=== PATIENT | male | born 1965 | race Caucasian/White ===

== ENCOUNTER 2016-12-24 22:09 | Inpatient (IN) | payer MEDICAID ==
[~2016-12-24] VITALS: Ht 165.1 cm; Wt 79.4 kg
[2016-12-24 22:30] VITALS: BP 128/68
[2016-12-24] MEDS ORDERED: Famotidine 20 MG/ 2ML VIAL IVP ONE (22:45)
[2016-12-24 23:49] LABS: ALANINE AMINOTRANSFERASE 42 U/L (3-41); ANION GAP 19 (5-15); ASPARTATE AMINO TRANSFERASE 20 U/L (5-40); CALCIUM 9.5 mg/dL (8.6-10.2); CARBON DIOXIDE 24 mEQ/L (20-30); CHLORIDE 94 mEQ/L (98-107); CREATININE 0.6 mg/dL (0.7-1.2); GLOMERULAR FILTRATION RATE > 60 mL/min (>60); HEMOLYSIS 8; LIPASE 46 U/L (< 60); POTASSIUM 3.3 mEQ/L (3.4-4.9); SODIUM 137 mEQ/L (135-145); TOTAL PROTEIN 7.8 g/dL (6.6-8.7)
[2016-12-24 23:56] LABS: BASOPHILS % (AUTO) 0.9 % (0.0-2.0); EOSINOPHILS % (AUTO) 1.9 % (0.0-3.0); LYMPHOCYTES % (AUTO) 25.9 % (20.0-45.0); MEAN CORPUSCULAR HEMOGLOBIN 30.1 PG (27.0-31.0); MEAN CORPUSCULAR HGB CONC 34.1 G/DL (32.0-36.0); MEAN CORPUSCULAR VOLUME 88 FL (80-99); MEAN PLATELET VOLUME 5.9 FL (6.5-10.1); MONOCYTES % (AUTO) 8.6 % (1.0-10.0); NEUTROPHILS % (AUTO) 62.7 % (45.0-75.0); PLATELET COUNT 289 K/UL (150-450); RED BLOOD COUNT 5.19 M/UL (4.70-6.10); RED CELL DISTRIBUTION WIDTH 11.9 % (11.6-14.8); WHITE BLOOD COUNT 10.8 K/UL (4.8-10.8)
[2016-12-25] VITALS (7 sets, daily range): BP systolic 116–126; BP diastolic 65–80
[2016-12-25] MEDS ORDERED: Phytonadione 10 MG in D5W 55 ML IVPB ONE ×2
[2016-12-25] MEDS ORDERED: Morphine Sulfate 2mg/ml Inj IVP PRN
[2016-12-25] MEDS ORDERED: Miralax 17gm pkt ORAL PRN
[2016-12-25] MEDS ORDERED: Nitroglycerin Subl 0.4mg tab (Bottle Of 25) SL PRN
[2016-12-25] MEDS ORDERED: Mylanta II UD 30ml ORAL PRN
[2016-12-25 00:03] LABS: INR 1.1 (0.9-1.1); PROTHROMBIN TIME 11.3 SEC (9.30-11.50)
[2016-12-25] MEDS: D5NS 1,000 ML IV SCH ×3 (00:14→20:05)
[2016-12-25] MEDS ORDERED: AMLODIPINE BESY10 MG ORAL (00:57)
[2016-12-25] MEDS ORDERED: PANTOPRAZOLE SO40 MG ORAL (00:57)
[2016-12-25] MEDS ORDERED: LEVOTHYROXINE25 MCG ORAL (00:57)
[2016-12-25] MEDS ORDERED: SERTRALINE HCL50 MG ORAL (00:57)
[2016-12-25] MEDS ORDERED: XARELTO10 MG ORAL (00:57)
[2016-12-25] MEDS ORDERED: METFORMIN HCL1000 M1 ORAL (00:57)
[2016-12-25] MEDS ORDERED: ASPIRIN81 MG ORAL (00:57)
[2016-12-25] MEDS ORDERED: LANTUS SOL100 UNIT/1 SUBQ (00:57)
[2016-12-25] MEDS ORDERED: DOCUSATE SODIU100 MG ORAL (00:57)
[2016-12-25] MEDS ORDERED: NEURONTIN400 MG ORAL (00:57)
[2016-12-25] MEDS ORDERED: LORAZEPAM0.5 MG ORAL (00:57)
[2016-12-25] MEDS ORDERED: GLIPIZIDE5 MG ORAL (00:57)
[2016-12-25] MEDS ORDERED: ACETAMINOPHEN325 M1 ORAL (00:57)
[2016-12-25] MEDS ORDERED: ATORVASTATIN CA20 MG ORAL (00:57)
[2016-12-25] MEDS ORDERED: RESTORIL15 MG ORAL (00:57)
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
[2016-12-25] MEDS ORDERED: Phytonadione 10 mg/mL 1ml amp ONE (02:50)
[2016-12-25 03:20] LABS: KETONES,URINE NEGATIVE (NEGATIVE); LEUKOCYTE ESTERASE ,URINE NEGATIVE (NEGATIVE); NITRITE,URINE NEGATIVE (NEGATIVE); PH,URINE 6 (4.5-8.0); PROTEIN,URINE NEGATIVE (NEGATIVE); UROBILINOGEN,URINE 1 MG/DL (0.0-1.0)
[2016-12-25 03:31] LABS: APPEARANCE,URINE CLEAR
[2016-12-25 07:07] LABS: BASOPHILS % (AUTO) 1.2 % (0.0-2.0); LYMPHOCYTES % (AUTO) 27.9 % (20.0-45.0); MEAN CORPUSCULAR HEMOGLOBIN 29.5 PG (27.0-31.0); MEAN CORPUSCULAR VOLUME 89 FL (80-99); MONOCYTES % (AUTO) 10.5 % (1.0-10.0); NEUTROPHILS % (AUTO) 57.4 % (45.0-75.0); PLATELET COUNT 243 K/UL (150-450); RED BLOOD COUNT 4.82 M/UL (4.70-6.10); RED CELL DISTRIBUTION WIDTH 11.7 % (11.6-14.8); WHITE BLOOD COUNT 8.3 K/UL (4.8-10.8)
[2016-12-25 07:23] LABS: ALANINE AMINOTRANSFERASE 40 U/L (3-41); AMYLASE 32 U/L (10-110); ANION GAP 16 (5-15); ASPARTATE AMINO TRANSFERASE 24 U/L (5-40); CALCIUM 8.9 mg/dL (8.6-10.2); CARBON DIOXIDE 23 mEQ/L (20-30); CHLORIDE 97 mEQ/L (98-107); CREATININE 0.5 mg/dL (0.7-1.2); GLOMERULAR FILTRATION RATE > 60 mL/min (>60); HEMOLYSIS 64; LIPASE 50 U/L (< 60); POTASSIUM 3.8 mEQ/L (3.4-4.9); SODIUM 136 mEQ/L (135-145); TOTAL PROTEIN 7.2 g/dL (6.6-8.7)
[2016-12-25 08:02] LABS: PROTHROMBIN TIME 10.2 SEC (9.30-11.50)
--- NOTE | 2016-12-25 13:46 | GI Initial Consult Note ---
History of Present Illness General Date patient seen: Dec 25, 2016 Time patient seen: 10:00 Reason for Hospitalization: Abdominal Pain Referring physician: RAF JARRETT Reason for Consultation: HEMATEMESIS Present Illness HPI Is a 51-year-old male with history hypertension and diabetes. He lives in a half[place]way. He presents with chief complaint of epigastric pain with 2 episode of hematemesis earlier this morning. He has no pain now. No vomiting now. No diarrhea or melena. Pain was 8/10. Crampy in nature. Denies any history of alcohol or drug use. GI Consult. HPI as noted above. GI consulted for hematemesis. Pt seen on floor, fatigue A&Ox4 NAD with no active s/sx of N/V/D. The patient presents today with stable H&H and elevated alkaline phosphatase. No known history of endoscopic procedures. Home Meds Reported Medications Sertraline Hcl* (ZOLOFT*) 50 Mg Tablet, 50 MG ORAL DAILY, TAB 12/25/16 Rivaroxaban (XARELTO*) 10 Mg Tablet, 20 MG ORAL DAILY, #30 TAB 0 Refills 12/25/16 Temazepam* (RESTORIL*) 15 Mg Capsule, 15 MG ORAL PRN Y for Insomnia, CAP 12/25/16 Pantoprazole* (PANTOPRAZOLE*) 40 Mg Tablet.dr, 40 MG ORAL DAILY, TAB 12/25/16 Gabapentin* (NEURONTIN*) 400 Mg Capsule, 400 MG ORAL THREE TIMES A DAY, #15 CAP 0 Refills 12/25/16 Metformin Hcl* (METFORMIN HCL*) 1,000 Mg Tablet, 1000 MG ORAL BID, TAB 12/25/16 Lorazepam* (LORAZEPAM*) 0.5 Mg Tablet, 0.5 MG ORAL PRN, TAB 12/25/16 Levothyroxine Sodium* (LEVOTHYROXINE SODIUM*) 25 Mcg Tablet, 25 MCG ORAL DAILY, TAB Take in the morning on an empty stomach, at least 30 minutes before food. 12/25/16 Insulin Glargine (LANTUS) 100 Unit/1 Ml Insuln.pen, 0 SUBQ BEDTIME, #1 EA 0 Refills 12/25/16 Glipizide* (GLIPIZIDE*) 5 Mg Tablet, 5 MG ORAL BIDAC, TAB 12/25/16 Docusate Sodium* (DOCUSATE SODIUM*) 100 Mg Capsule, 100 MG ORAL DAILY for Constipation, CAP 12/25/16 Atorvastatin Calcium* (ATORVASTATIN CALCIUM*) 20 Mg Tablet, 20 MG ORAL BEDTIME, TAB 12/25/16 Aspirin* (ASPIRIN*) 81 Mg Tab.chew, 81 MG ORAL DAILY, TAB 12/25/16 Amlodipine Besylate* (AMLODIPINE BESYLATE*) 10 Mg Tablet, 10 MG ORAL DAILY Y for For High Blood Pressure, TAB 12/25/16 Acetaminophen* (ACETAMINOPHEN 325MG TABLET*) 325 Mg Tablet, 650 MG ORAL Q4H Y for For Pain, TAB 12/25/16 Med list reviewed/reconciled: Yes Allergies: Coded Allergies: AMOXICILLIN (Verified Allergy, Unknown, 12/24/16) Patient History History Provided By: Patient, Medical Record [facility] Narrative Past Medical History: No History, Except For Hx Cardiac Problems: Yes - chf Hx Hypertension: Yes Hx Diabetes: Yes - DM2 Social History Narrative social ETOH social tobacco use Review of Systems All Other Systems: negative except mentioned in HPI Physical Exam Vital Signs Date Time Temp Pulse Resp B/P Pulse Ox O2 Delivery O2 Flow Rate FiO2 12/24/16 22:16 98.4 100 20 128/67 90 Room Air Sp02 EP Interpretation: reviewed Labs Laboratory Tests Test 12/24/16 23:15 12/25/16 02:00 12/25/16 04:55 White Blood Count 10.8 K/UL (4.8-10.8) 8.3 K/UL (4.8-10.8) Red Blood Count 5.19 M/UL (4.70-6.10) 4.82 M/UL (4.70-6.10) Hemoglobin 15.6 G/DL (14.2-18.0) 14.2 G/DL (14.2-18.0) Hematocrit 45.7 % (42.0-52.0) 43.0 % (42.0-52.0) Mean Corpuscular Volume 88 FL (80-99) 89 FL (80-99) Mean Corpuscular Hemoglobin 30.1 PG (27.0-31.0) 29.5 PG (27.0-31.0) Mean Corpuscular Hemoglobin Concent 34.1 G/DL (32.0-36.0) 33.0 G/DL (32.0-36.0) Red Cell Distribution Width 11.9 % (11.6-14.8) 11.7 % (11.6-14.8) Platelet Count 289 K/UL (150-450) 243 K/UL (150-450) Mean Platelet Volume 5.9 FL (6.5-10.1) L 6.0 FL (6.5-10.1) L Neutrophils (%) (Auto) 62.7 % (45.0-75.0) 57.4 % (45.0-75.0) Lymphocytes (%) (Auto) 25.9 % (20.0-45.0) 27.9 % (20.0-45.0) Monocytes (%) (Auto) 8.6 % (1.0-10.0) 10.5 % (1.0-10.0) H Eosinophils (%) (Auto) 1.9 % (0.0-3.0) 3.0 % (0.0-3.0) Basophils (%) (Auto) 0.9 % (0.0-2.0) 1.2 % (0.0-2.0) Prothrombin Time 11.3 SEC (9.30-11.50) 10.2 SEC (9.30-11.50) Prothromb Time International Ratio 1.1 (0.9-1.1) 1.0 (0.9-1.1) Activated Partial Thromboplast Time 34 SEC (23-33) H 28 SEC (23-33) Sodium Level 137 mEQ/L (135-145) 136 mEQ/L (135-145) Potassium Level 3.3 mEQ/L (3.4-4.9) L 3.8 mEQ/L (3.4-4.9) Chloride Level 94 mEQ/L (98-107) L 97 mEQ/L (98-107) L Carbon Dioxide Level 24 mEQ/L (20-30) 23 mEQ/L (20-30) Anion Gap 19 (5-15) H 16 (5-15) H Blood Urea Nitrogen 12 mg/dL (7-23) 10 mg/dL (7-23) Creatinine 0.6 mg/dL (0.7-1.2) L 0.5 mg/dL (0.7-1.2) L Estimat Glomerular Filtration Rate > 60 mL/min (>60) > 60 mL/min (>60) Glucose Level 160 mg/dL (74-106) H 171 mg/dL (74-106) H Calcium Level 9.5 mg/dL (8.6-10.2) 8.9 mg/dL (8.6-10.2) Total Bilirubin 0.4 mg/dL (0.0-1.2) 0.4 mg/dL (0.0-1.2) Aspartate Amino Transf (AST/SGOT) 20 U/L (5-40) 24 U/L (5-40) Alanine Aminotransferase (ALT/SGPT) 42 U/L (3-41) H 40 U/L (3-41) Alkaline Phosphatase 147 U/L (40-129) H 135 U/L (40-129) H Total Protein 7.8 g/dL (6.6-8.7) 7.2 g/dL (6.6-8.7) Albumin 3.9 g/dL (3.5-5.2) 3.6 g/dL (3.5-5.2) Globulin 3.9 g/dL 3.6 g/dL Albumin/Globulin Ratio 1.0 (1.0-2.7) 1.0 (1.0-2.7) Lipase 46 U/L (< 60) 50 U/L (< 60) Urine Color Yellow Urine Appearance Clear Urine pH 6 (4.5-8.0) Urine Specific [place] 1.020 (1.005-1.035) Urine Protein Negative (NEGATIVE) Urine Glucose (UA) 1+ (NEGATIVE) H Urine Ketones Negative (NEGATIVE) Urine Occult Blood Negative (NEGATIVE) Urine Nitrite Negative (NEGATIVE) Urine Bilirubin Negative (NEGATIVE) Urine Urobilinogen 1 MG/DL (0.0-1.0) H Urine Leukocyte Esterase Negative (NEGATIVE) Amylase Level 32 U/L (10-110) General Appearance: well appearing, no apparent distress, alert Head: normocephalic EENT: normal ENT inspection Neck: supple Respiratory: normal breath sounds, no rhonchi, no respiratory distress Cardiovascular: normal rate Gastrointestinal: normal inspection, non tender, soft Rectal: deferred Musculoskeletal: normal inspection, back normal Neurologic: normal inspection, alert, oriented x3, responsive Psychiatric: normal inspection, judgement/insight normal Skin: normal inspection, normal color, no rash Lymphatic: normal inspection, no adenopathy Current Medications Current Medications Medications (Trade) Dose Ordered Sig/Elis Route PRN Reason Start Time Stop Time Status Last Admin Dose Admin Acetaminophen (Tylenol) 650 mg Q4H PRN ORAL fever 12/25/16 00:00 01/24/17 00:00 Al Hydroxide/Mg Hydroxide (Mylanta II) 30 ml Q6H PRN ORAL dyspepsia 12/25/16 00:00 01/24/17 00:00 Dextrose STAT PRN IV Hypoglycemia 12/25/16 00:00 01/24/17 00:00 Dextrose/Sodium Chloride (D5ns) 1,000 ml @ 100 mls/hr Q10H IV 12/24/16 23:51 01/23/17 23:50 12/25/16 09:58 Diphenhydramine HCl (Benadryl) 25 mg Q6H PRN ORAL Itching/Pruritis 12/25/16 00:00 01/24/17 00:00 Morphine Sulfate (Morphine Sulfate) 2 mg Q4H PRN IVP severe Pain (Pain Scale 7-10) 12/25/16 00:00 01/01/17 00:00 Nitroglycerin (Ntg) 0.4 mg Q5M X 3 DOSES PRN SL Prn Chest Pain 12/25/16 00:00 01/24/17 00:00 Ondansetron HCl (Zofran) 4 mg Q6H PRN IVP Nausea & Vomiting 12/25/16 00:00 01/24/17 00:00 Polyethylene Glycol (Miralax) 17 gm HSPRN PRN ORAL Constipation 12/25/16 00:00 01/24/17 00:00 Temazepam (Restoril) 15 mg HSPRN PRN ORAL Insomnia 12/25/16 00:00 01/01/17 00:00 GI: Plan Problems: (1) Hematemesis Plan stable H&H lipase negative EGD scheduled for tomorrow to evaluate hematemesis. - CLD, NPO @ NE. ppi monitor H&H, transfuse prn fu labs Discussed with Dr. Mcgraw. Thank you for referring this patient, we will follow. Ginny Butterfield N.P. Dec 25, 2016 13:46
--- NOTE | 2016-12-25 14:06 | Diagnostic Imaging Report ---
Indication: Chest pain Technique: One view of the chest Comparison: none Findings: The right hemidiaphragm is elevated. Lungs and pleural spaces are clear otherwise. A surgical clip is seen in the right axilla. The heart size is normal Impression: Elevated right hemidiaphragm. No definite acute process
--- NOTE | 2016-12-25 16:33 | Consultation ---
History of Present Illness General Date patient seen: Dec 25, 2016 Chief Complaint: Abdominal Pain Referring physician: RAF JARRETT Reason for Consultation: HEMATEMESIS Present Illness HPI 51-year-old male with history hypertension and diabetes, [place], [place] [facility] resident presents with chief complaint of epigastric pain with 2 episode of hematemesis earlier this morning. He has no pain now. No vomiting now. No diarrhea or melena. Pain was 8/10. Crampy in nature. Denies any history of alcohol or drug use. Allergies: Coded Allergies: AMOXICILLIN (Verified Allergy, Unknown, 12/24/16) Medication History Scheduled Aspirin* (Aspirin*), 81 MG ORAL DAILY, (Reported) Atorvastatin Calcium* (Atorvastatin Calcium*), 20 MG ORAL BEDTIME, (Reported) Docusate Sodium* (Docusate Sodium*), 100 MG ORAL DAILY, (Reported) Gabapentin* (Neurontin*), 400 MG ORAL THREE TIMES A DAY, (Reported) Glipizide* (Glipizide*), 5 MG ORAL BIDAC, (Reported) Insulin Glargine (Lantus), 0 SUBQ BEDTIME, (Reported) Levothyroxine Sodium* (Levothyroxine Sodium*), 25 MCG ORAL DAILY, (Reported) Lorazepam* (Lorazepam*), 0.5 MG ORAL PRN, (Reported) Metformin Hcl* (Metformin Hcl*), 1,000 MG ORAL BID, (Reported) Pantoprazole* (Pantoprazole*), 40 MG ORAL DAILY, (Reported) Rivaroxaban (Xarelto*), 20 MG ORAL DAILY, (Reported) Sertraline Hcl* (Zoloft*), 50 MG ORAL DAILY, (Reported) Scheduled PRN Acetaminophen* (Acetaminophen 325MG Tablet*), 650 MG ORAL Q4H PRN for For Pain, (Reported) Amlodipine Besylate* (Amlodipine Besylate*), 10 MG ORAL DAILY PRN for For High Blood Pressure, (Reported) Temazepam* (Restoril*), 15 MG ORAL PRN PRN for Insomnia, (Reported) Patient History Healthcare decision maker Resuscitation status Full Code Advanced Directive on File Past Medical/Surgical History Past Medical/Surgical History: (1) HTN (hypertension) (2) Psychosis Review of Systems All Other Systems: negative except mentioned in HPI Physical Exam General Appearance: WD/WN, no apparent distress Lines, tubes and drains: peripheral, central line HEENT: normocephalic, atraumatic Neck: non-tender, normal alignment Respiratory/Chest: chest wall non-tender, lungs clear Cardiovascular/Chest: normal peripheral pulses, normal rate Abdomen: normal bowel sounds Genitourinary/Rectal: normal genital exam, normal rectal exam Extremities: normal range of motion, other - 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 Skin Exam: normal pigmentation Last 24 Hour Vital Signs Date Time Temp Pulse Resp B/P Pulse Ox O2 Delivery O2 Flow Rate FiO2 12/25/16 12:00 96.8 82 20 116/65 95 Room Air 12/25/16 08:00 97.3 89 20 120/72 94 Room Air 12/25/16 01:51 97.9 92 18 125/80 95 Room Air 12/25/16 01:40 98.2 92 21 126/72 99 Room Air 12/25/16 01:40 98.2 92 21 126/72 99 Room Air 12/25/16 00:10 81 17 122/65 100 Room Air 12/24/16 22:30 98.4 99 20 128/68 97 Room Air 12/24/16 22:16 98.4 100 20 128/67 90 Room Air Intake and Output 12/24/16 12/25/16 19:00 07:00 Intake Total 1600 ml Output Total 450 ml Balance 1150 ml Intake IV Total 1600 ml Output Urine Total 450 ml Laboratory Tests Test 12/24/16 23:15 12/25/16 02:00 12/25/16 04:55 White Blood Count 10.8 K/UL (4.8-10.8) 8.3 K/UL (4.8-10.8) Red Blood Count 5.19 M/UL (4.70-6.10) 4.82 M/UL (4.70-6.10) Hemoglobin 15.6 G/DL (14.2-18.0) 14.2 G/DL (14.2-18.0) Hematocrit 45.7 % (42.0-52.0) 43.0 % (42.0-52.0) Mean Corpuscular Volume 88 FL (80-99) 89 FL (80-99) Mean Corpuscular Hemoglobin 30.1 PG (27.0-31.0) 29.5 PG (27.0-31.0) Mean Corpuscular Hemoglobin Concent 34.1 G/DL (32.0-36.0) 33.0 G/DL (32.0-36.0) Red Cell Distribution Width 11.9 % (11.6-14.8) 11.7 % (11.6-14.8) Platelet Count 289 K/UL (150-450) 243 K/UL (150-450) Mean Platelet Volume 5.9 FL (6.5-10.1) L 6.0 FL (6.5-10.1) L Neutrophils (%) (Auto) 62.7 % (45.0-75.0) 57.4 % (45.0-75.0) Lymphocytes (%) (Auto) 25.9 % (20.0-45.0) 27.9 % (20.0-45.0) Monocytes (%) (Auto) 8.6 % (1.0-10.0) 10.5 % (1.0-10.0) H Eosinophils (%) (Auto) 1.9 % (0.0-3.0) 3.0 % (0.0-3.0) Basophils (%) (Auto) 0.9 % (0.0-2.0) 1.2 % (0.0-2.0) Prothrombin Time 11.3 SEC (9.30-11.50) 10.2 SEC (9.30-11.50) Prothromb Time International Ratio 1.1 (0.9-1.1) 1.0 (0.9-1.1) Activated Partial Thromboplast Time 34 SEC (23-33) H 28 SEC (23-33) Sodium Level 137 mEQ/L (135-145) 136 mEQ/L (135-145) Potassium Level 3.3 mEQ/L (3.4-4.9) L 3.8 mEQ/L (3.4-4.9) Chloride Level 94 mEQ/L (98-107) L 97 mEQ/L (98-107) L Carbon Dioxide Level 24 mEQ/L (20-30) 23 mEQ/L (20-30) Anion Gap 19 (5-15) H 16 (5-15) H Blood Urea Nitrogen 12 mg/dL (7-23) 10 mg/dL (7-23) Creatinine 0.6 mg/dL (0.7-1.2) L 0.5 mg/dL (0.7-1.2) L Estimat Glomerular Filtration Rate > 60 mL/min (>60) > 60 mL/min (>60) Glucose Level 160 mg/dL (74-106) H 171 mg/dL (74-106) H Calcium Level 9.5 mg/dL (8.6-10.2) 8.9 mg/dL (8.6-10.2) Total Bilirubin 0.4 mg/dL (0.0-1.2) 0.4 mg/dL (0.0-1.2) Aspartate Amino Transf (AST/SGOT) 20 U/L (5-40) 24 U/L (5-40) Alanine Aminotransferase (ALT/SGPT) 42 U/L (3-41) H 40 U/L (3-41) Alkaline Phosphatase 147 U/L (40-129) H 135 U/L (40-129) H Total Protein 7.8 g/dL (6.6-8.7) 7.2 g/dL (6.6-8.7) Albumin 3.9 g/dL (3.5-5.2) 3.6 g/dL (3.5-5.2) Globulin 3.9 g/dL 3.6 g/dL Albumin/Globulin Ratio 1.0 (1.0-2.7) 1.0 (1.0-2.7) Lipase 46 U/L (< 60) 50 U/L (< 60) Urine Color Yellow Urine Appearance Clear Urine pH 6 (4.5-8.0) Urine Specific [place] 1.020 (1.005-1.035) Urine Protein Negative (NEGATIVE) Urine Glucose (UA) 1+ (NEGATIVE) H Urine Ketones Negative (NEGATIVE) Urine Occult Blood Negative (NEGATIVE) Urine Nitrite Negative (NEGATIVE) Urine Bilirubin Negative (NEGATIVE) Urine Urobilinogen 1 MG/DL (0.0-1.0) H Urine Leukocyte Esterase Negative (NEGATIVE) Amylase Level 32 U/L (10-110) Height (Feet): 5 Height (Inches): 10.00 Weight (Pounds): 175 Medications Current Medications Medications (Trade) Dose Ordered Sig/Elis Route PRN Reason Start Time Stop Time Status Last Admin Dose Admin Acetaminophen (Tylenol) 650 mg Q4H PRN ORAL fever 12/25/16 00:00 01/24/17 00:00 Al Hydroxide/Mg Hydroxide (Mylanta II) 30 ml Q6H PRN ORAL dyspepsia 12/25/16 00:00 01/24/17 00:00 Dextrose (Dextrose 50%) STAT PRN IV Hypoglycemia 12/25/16 16:00 01/24/17 15:59 UNV Dextrose STAT PRN IV Hypoglycemia 12/25/16 00:00 01/24/17 00:00 Dextrose/Sodium Chloride (D5ns) 1,000 ml @ 100 mls/hr Q10H IV 12/24/16 23:51 01/23/17 23:50 12/25/16 09:58 Diphenhydramine HCl (Benadryl) 25 mg Q6H PRN ORAL Itching/Pruritis 12/25/16 00:00 01/24/17 00:00 Famotidine (Pepcid I.v.) 20 mg Q12HR IVP 12/25/16 21:00 01/24/17 20:59 UNV Insulin Aspart (NovoLOG) BEFORE MEALS AND HS SUBQ 12/25/16 16:30 01/24/17 16:29 UNV Morphine Sulfate (Morphine Sulfate) 2 mg Q4H PRN IVP severe Pain (Pain Scale 7-10) 12/25/16 00:00 01/01/17 00:00 Nitroglycerin (Ntg) 0.4 mg Q5M X 3 DOSES PRN SL Prn Chest Pain 12/25/16 00:00 01/24/17 00:00 Ondansetron HCl (Zofran) 4 mg Q6H PRN IVP Nausea & Vomiting 12/25/16 00:00 01/24/17 00:00 Polyethylene Glycol (Miralax) 17 gm HSPRN PRN ORAL Constipation 12/25/16 00:00 01/24/17 00:00 Temazepam (Restoril) 15 mg HSPRN PRN ORAL Insomnia 12/25/16 00:00 01/01/17 00:00 Assessment/Plan Problem List: (1) Hematemesis ICD Codes: K92.0 - Hematemesis SNOMED: 9644350 Qualifiers: Qualified Codes: K92.0 - Hematemesis (2) Psychosis ICD Codes: F29 - Unspecified psychosis not due to a substance or known physiological condition SNOMED: 98767903 (3) HTN (hypertension) ICD Codes: I10 - Essential (primary) hypertension SNOMED: 56250229 Assessment/Plan npo Iv fluids check h/h prbc prn check and correct any coagulopathy monitor BP GI evaluation dvt prophylaxis. ANTONIA RAE Dec 25, 2016 16:33
--- NOTE | 2016-12-25 16:45 | History and Physical Report ---
DATE OF ADMISSION: 12/25/2016 TIME SEEN: 11 a.m. CONSULTANTS: 1. Tye Hughes M.D. 2. Kirill Mcgraw M.D. CHIEF COMPLAINT: Hematemesis. HISTORY OF PRESENT ILLNESS: The patient is a 51-year-old male from [facility] presented with bright red hematemesis x1, was slightly weak, transferred to [facility], diagnosed with gastrointestinal bleed, hematemesis admitted for further treatment, currently calm, sitting in bed, no complaints otherwise other than . REVIEW OF SYSTEMS: No chest pain. No shortness of breath. Slight nausea. No vomiting or diarrhea. PAST MEDICAL HISTORY: Diabetes, congestive heart failure. PAST SURGICAL HISTORY: Right arm. MEDICATIONS: Tylenol, morphine sulfate, MiraLAX, Zofran, Restoril, Benadryl, Mylanta, and nitroglycerin. ALLERGIES: Denies. SOCIAL HISTORY: Positive smoking. No alcohol. No intravenous drug abuse. FAMILY HISTORY: Noncontributory. PHYSICAL EXAMINATION: GENERAL: Calm in bed, oriented x2, and in no acute distress. VITAL SIGNS: Temperature is 97 degrees, pulse 89, respirations 20, and blood pressure 120/72. CARDIOVASCULAR: No murmur. LUNGS: Distant and poor exchange. ABDOMEN: Positive bowel sounds. Nontender and nondistended. EXTREMITIES: No cyanosis, clubbing, or edema. NEUROLOGIC: The patient moves all four extremities but slightly weak. LABORATORY DATA: CBC is normal. BMP shows chloride 97. BUN and creatinine 10 over 0.5, glucose 171. Alkaline phosphatase 135. INR 1.0. PTT 28. Urinalysis shows 1+ glucose, otherwise normal. ASSESSMENT: 1. Hematemesis, possible gastrointestinal bleed. 2. Diabetes. 3. Hypertension. PLAN: 1. Resume previous medications. 2. Accu-Chek sliding scale. 3. Stool guaiac x3. 4. CBC and BMP in the morning. 5. Blood pressure control. 6. Blood sugar control. 7. Dietary followup. 8. OT/PT evaluation. 9. CBC and BMP in the morning. 10. Dr. Hughes and Dr. Mcgraw to consult. 11. We will continue to follow this patient. Jose Oneal D.O. DR: Paloma JOB#: [id number] CC:
[2016-12-25] MEDS: NovoLOG Insulin Flexpen SUBQ SCH ×2 (18:03→20:39)
[2016-12-25] MEDS: Famotidine 20 MG/ 2ML VIAL IVP SCH (20:37)
[2016-12-26] VITALS: BP 123/70
[2016-12-26] MEDS: D5NS 1,000 ML IV SCH ×2 (05:51→15:51)
[2016-12-26] MEDS: NovoLOG Insulin Flexpen SUBQ SCH ×4 (06:30→20:51)
[2016-12-26 08:06] LABS: BASOPHILS % (AUTO) 0.7 % (0.0-2.0); EOSINOPHILS % (AUTO) 2.2 % (0.0-3.0); MEAN CORPUSCULAR HEMOGLOBIN 29.4 PG (27.0-31.0); MEAN CORPUSCULAR HGB CONC 33.1 G/DL (32.0-36.0); MEAN CORPUSCULAR VOLUME 89 FL (80-99); MEAN PLATELET VOLUME 6.3 FL (6.5-10.1); MONOCYTES % (AUTO) 10.6 % (1.0-10.0); NEUTROPHILS % (AUTO) 66.5 % (45.0-75.0); PLATELET COUNT 283 K/UL (150-450); RED BLOOD COUNT 4.76 M/UL (4.70-6.10); RED CELL DISTRIBUTION WIDTH 11.8 % (11.6-14.8); WHITE BLOOD COUNT 8.2 K/UL (4.8-10.8)
[2016-12-26 08:15] VITALS: BP 113/60
[2016-12-26 08:18] LABS: PROTHROMBIN TIME 10.3 SEC (9.30-11.50)
[2016-12-26 08:25] LABS: ANION GAP 13 (5-15); CALCIUM 8.7 mg/dL (8.6-10.2); CARBON DIOXIDE 27 mEQ/L (20-30); CHLORIDE 99 mEQ/L (98-107); CREATININE 0.5 mg/dL (0.7-1.2); GLOMERULAR FILTRATION RATE > 60 mL/min (>60); HEMOLYSIS 1; POTASSIUM 3.4 mEQ/L (3.4-4.9); SODIUM 139 mEQ/L (135-145)
[2016-12-26] MEDS: Famotidine 20 MG/ 2ML VIAL IVP SCH ×2 (09:00→21:00)
[2016-12-26 11:54] VITALS: BP 137/75
[2016-12-26] MEDS ORDERED: Heparin 2000 units/Ns 1000ml INJ ONE (13:00)
[2016-12-26] MEDS ORDERED: Lidocaine 1% Plain 30 ml INJ ONE (13:00)
[2016-12-26] MEDS: Dyna-Hex 2% Top Sol 8oz TOPIC SCH (13:00)
--- NOTE | 2016-12-26 14:42 | General Progress Note ---
Assessment/Plan Problem List: (1) Hematemesis ICD Codes: K92.0 - Hematemesis SNOMED: 6348067 Qualifiers: Qualified Codes: K92.0 - Hematemesis (2) Psychosis ICD Codes: F29 - Unspecified psychosis not due to a substance or known physiological condition SNOMED: 06386299 (3) HTN (hypertension) ICD Codes: I10 - Essential (primary) hypertension SNOMED: 72136445 Status: stable, progressing, tolerating diet Assessment/Plan ot pt diet adv diet gi f/u cbc bmp am dc plan Subjective Constitutional: Reports: weakness Allergies: Coded Allergies: AMOXICILLIN (Verified Allergy, Unknown, 12/24/16) All Systems: reviewed and negative except above Subjective calm in bed Objective Last 24 Hour Vital Signs Date Time Temp Pulse Resp B/P Pulse Ox O2 Delivery O2 Flow Rate FiO2 12/26/16 11:54 98.2 85 21 137/75 94 Room Air 12/26/16 08:15 97.0 82 22 113/60 97 Room Air 12/26/16 00:00 98.1 95 17 123/70 93 Room Air 12/25/16 20:00 98.2 89 17 125/74 93 Room Air 12/25/16 16:00 97.7 92 20 123/67 94 Room Air Intake and Output 12/25/16 12/26/16 19:00 07:00 Intake Total 1700 ml 660 ml Output Total 350 ml Balance 1700 ml 310 ml Intake Oral 400 ml 360 ml IV Total 1300 ml 300 ml Output Urine Total 350 ml # Voids 7 4 Laboratory Tests 12/26/16 07:25: White Blood Count 8.2, Red Blood Count 4.76, Hemoglobin 14.0L, Hematocrit 42.3, Mean Corpuscular Volume 89, Mean Corpuscular Hemoglobin 29.4, Mean Corpuscular Hemoglobin Concent 33.1, Red Cell Distribution Width 11.8, Platelet Count 283, Mean Platelet Volume 6.3L, Neutrophils (%) (Auto) 66.5, Lymphocytes (%) (Auto) 20.0, Monocytes (%) (Auto) 10.6H, Eosinophils (%) (Auto) 2.2, Basophils (%) ( Auto) 0.7, Prothrombin Time 10.3, Prothromb Time International Ratio 1.0, Activated Partial Thromboplast Time 28, Sodium Level 139, Potassium Level 3.4, Chloride Level 99, Carbon Dioxide Level 27, Anion Gap 13, Blood Urea Nitrogen 7 , Creatinine 0.5L, Estimat Glomerular Filtration Rate > 60, Glucose Level 171H, Calcium Level 8.7 Height (Feet): 5 Height (Inches): 5.00 Weight (Pounds): 175 General Appearance: lethargic EENT: normal ENT inspection Neck: normal alignment Cardiovascular: normal peripheral pulses, normal rate, regular rhythm Respiratory/Chest: chest wall non-tender, lungs clear, normal breath sounds Abdomen: normal bowel sounds, non tender, soft Extremities: normal inspection Edema: no edema noted Arm (L), no edema noted Arm (R), no edema noted Leg (L), no edema noted Leg (R), no edema noted Pedal (L), no edema noted Pedal (R), no edema noted Generalized Neurologic: motor weakness Skin: normal pigmentation, warm/dry RAF JARRETT Dec 26, 2016 14:42
--- NOTE | 2016-12-26 14:57 | GI Progress Note ---
Assessment/Plan Problems: (1) Hematemesis ICD Codes: K92.0 - Hematemesis SNOMED: 6772185 Qualifiers: Qualified Codes: K92.0 - Hematemesis Status: stable Status Narrative Discussed with Dr. Mcgraw. Assessment/Plan stable H&H lipase negative EGD rescheduled for tomorrow due to no IV access - CLD, NPO @ [facility]. ppi monitor H&H, transfuse prn fu labs Subjective Gastrointestinal/Abdominal: Reports: no symptoms Objective Last 24 Hour Vital Signs Date Time Temp Pulse Resp B/P Pulse Ox O2 Delivery O2 Flow Rate FiO2 12/26/16 11:54 98.2 85 21 137/75 94 Room Air 12/26/16 08:15 97.0 82 22 113/60 97 Room Air 12/26/16 00:00 98.1 95 17 123/70 93 Room Air 12/25/16 20:00 98.2 89 17 125/74 93 Room Air 12/25/16 16:00 97.7 92 20 123/67 94 Room Air Intake and Output 12/25/16 12/26/16 19:00 07:00 Intake Total 1700 ml 660 ml Output Total 350 ml Balance 1700 ml 310 ml Intake Oral 400 ml 360 ml IV Total 1300 ml 300 ml Output Urine Total 350 ml # Voids 7 4 Laboratory Tests Test 12/26/16 07:25 White Blood Count 8.2 K/UL (4.8-10.8) Red Blood Count 4.76 M/UL (4.70-6.10) Hemoglobin 14.0 G/DL (14.2-18.0) L Hematocrit 42.3 % (42.0-52.0) Mean Corpuscular Volume 89 FL (80-99) Mean Corpuscular Hemoglobin 29.4 PG (27.0-31.0) Mean Corpuscular Hemoglobin Concent 33.1 G/DL (32.0-36.0) Red Cell Distribution Width 11.8 % (11.6-14.8) Platelet Count 283 K/UL (150-450) Mean Platelet Volume 6.3 FL (6.5-10.1) L Neutrophils (%) (Auto) 66.5 % (45.0-75.0) Lymphocytes (%) (Auto) 20.0 % (20.0-45.0) Monocytes (%) (Auto) 10.6 % (1.0-10.0) H Eosinophils (%) (Auto) 2.2 % (0.0-3.0) Basophils (%) (Auto) 0.7 % (0.0-2.0) Prothrombin Time 10.3 SEC (9.30-11.50) Prothromb Time International Ratio 1.0 (0.9-1.1) Activated Partial Thromboplast Time 28 SEC (23-33) Sodium Level 139 mEQ/L (135-145) Potassium Level 3.4 mEQ/L (3.4-4.9) Chloride Level 99 mEQ/L (98-107) Carbon Dioxide Level 27 mEQ/L (20-30) Anion Gap 13 (5-15) Blood Urea Nitrogen 7 mg/dL (7-23) Creatinine 0.5 mg/dL (0.7-1.2) L Estimat Glomerular Filtration Rate > 60 mL/min (>60) Glucose Level 171 mg/dL (74-106) H Calcium Level 8.7 mg/dL (8.6-10.2) Height (Feet): 5 Height (Inches): 5.00 Weight (Pounds): 175 General Appearance: no apparent distress, alert Cardiovascular: normal rate Respiratory/Chest: normal breath sounds, no respiratory distress Abdominal Exam: normal bowel sounds, non tender, soft Ginny Butterfield N.P. Dec 26, 2016 14:57
[2016-12-26 16:16] VITALS: BP 144/79
--- NOTE | 2016-12-26 18:59 | Pulmonology Progress Note ---
Assessment/Plan Problems: (1) Hematemesis (2) Psychosis (3) HTN (hypertension) Assessment/Plan EGD for tomorrow check h/h, prbc prn symptomatic treatment check labs in am Subjective ROS Limited/Unobtainable: No Constitutional: Reports: no symptoms HEENT: Repors: no symptoms Respiratory: Reports: no symptoms Allergies: Coded Allergies: AMOXICILLIN (Verified Allergy, Unknown, 12/24/16) Objective Last 24 Hour Vital Signs Date Time Temp Pulse Resp B/P Pulse Ox O2 Delivery O2 Flow Rate FiO2 12/26/16 16:16 97.6 93 23 144/79 95 Room Air 12/26/16 11:54 98.2 85 21 137/75 94 Room Air 12/26/16 08:15 97.0 82 22 113/60 97 Room Air 12/26/16 00:00 98.1 95 17 123/70 93 Room Air 12/25/16 20:00 98.2 89 17 125/74 93 Room Air Intake and Output 12/25/16 12/26/16 18:59 06:59 Intake Total 1600 ml 760 ml Output Total 350 ml Balance 1600 ml 410 ml Intake Oral 400 ml 360 ml IV Total 1200 ml 400 ml Output Urine Total 350 ml # Voids 7 4 General Appearance: cachetic HEENT: normocephalic, atraumatic Respiratory/Chest: chest wall non-tender, lungs clear Cardiovascular: normal peripheral pulses, normal rate Abdomen: normal bowel sounds, soft, non tender Genitourinary: normal external genitalia Extremities: no cyanosis, no clubbing Skin: no rash Laboratory Tests 12/26/16 07:25: White Blood Count 8.2, Red Blood Count 4.76, Hemoglobin 14.0L, Hematocrit 42.3, Mean Corpuscular Volume 89, Mean Corpuscular Hemoglobin 29.4, Mean Corpuscular Hemoglobin Concent 33.1, Red Cell Distribution Width 11.8, Platelet Count 283, Mean Platelet Volume 6.3L, Neutrophils (%) (Auto) 66.5, Lymphocytes (%) (Auto) 20.0, Monocytes (%) (Auto) 10.6H, Eosinophils (%) (Auto) 2.2, Basophils (%) ( Auto) 0.7, Prothrombin Time 10.3, Prothromb Time International Ratio 1.0, Activated Partial Thromboplast Time 28, Sodium Level 139, Potassium Level 3.4, Chloride Level 99, Carbon Dioxide Level 27, Anion Gap 13, Blood Urea Nitrogen 7 , Creatinine 0.5L, Estimat Glomerular Filtration Rate > 60, Glucose Level 171H, Calcium Level 8.7 Current Medications Medications (Trade) Dose Ordered Sig/Elis Route PRN Reason Start Time Stop Time Status Last Admin Dose Admin Acetaminophen (Tylenol) 650 mg Q4H PRN ORAL fever 12/25/16 00:00 01/24/17 00:00 Al Hydroxide/Mg Hydroxide (Mylanta II) 30 ml Q6H PRN ORAL dyspepsia 12/25/16 00:00 01/24/17 00:00 Chlorhexidine Gluconate (Nataly-Hex 2%) 1 applic DAILY TOPIC 12/26/16 13:00 01/25/17 12:59 Dextrose (Dextrose 50%) STAT PRN IV Hypoglycemia 12/25/16 16:00 01/24/17 15:59 Dextrose STAT PRN IV Hypoglycemia 12/25/16 00:00 01/24/17 00:00 Dextrose/Sodium Chloride (D5ns) 1,000 ml @ 100 mls/hr Q10H IV 12/24/16 23:51 01/23/17 23:50 12/25/16 20:05 Diphenhydramine HCl (Benadryl) 25 mg Q6H PRN ORAL Itching/Pruritis 12/25/16 00:00 01/24/17 00:00 Famotidine (Pepcid I.v.) 20 mg Q12HR IVP 12/25/16 21:00 01/24/17 20:59 12/25/16 20:37 Insulin Aspart (NovoLOG) BEFORE MEALS AND HS SUBQ 12/25/16 17:30 01/24/17 17:29 12/26/16 17:37 Morphine Sulfate (Morphine Sulfate) 2 mg Q4H PRN IVP severe Pain (Pain Scale 7-10) 12/25/16 00:00 01/01/17 00:00 Nitroglycerin (Ntg) 0.4 mg Q5M X 3 DOSES PRN SL Prn Chest Pain 12/25/16 00:00 01/24/17 00:00 Ondansetron HCl (Zofran) 4 mg Q6H PRN IVP Nausea & Vomiting 6/28/17 00:00 01/24/17 00:00 Polyethylene Glycol (Miralax) 17 gm HSPRN PRN ORAL Constipation 12/25/16 00:00 01/24/17 00:00 Temazepam (Restoril) 15 mg HSPRN PRN ORAL Insomnia 12/25/16 00:00 01/01/17 00:00 ANTONIA RAE Dec 26, 2016 18:59
[2016-12-26 20:00] VITALS: BP 124/79
[2016-12-26 23:46] VITALS: BP 131/74
[2016-12-27] VITALS (9 sets, daily range): BP systolic 109–146; BP diastolic 63–86
[2016-12-27] MEDS: D5NS 1,000 ML IV SCH ×4 (01:51→23:00)
[2016-12-27] MEDS: NovoLOG Insulin Flexpen SUBQ SCH ×4 (06:22→21:10)
--- NOTE | 2016-12-27 06:27 | Anethesia Preoperative Eval ---
Anesthesia Pre-op PMH/ROS General Date of Evaluation: Dec 27, 2016 Time of Evaluation: 06:24 Anesthesiologist: irma ASA Score: ASA 2 Mallampati Score Class I : Soft palate, uvula, fauces, pillars visible Class II: Soft palate, uvula, fauces visible Class III: Soft palate, base of uvula visible Class IV: Only hard plate visible Mallampati Classification: Class II Surgeon: adriana Diagnosis: hematemesis Surgical Procedure: egd Anesthesia History: none Family History: no anesthesia problems Allergies: Coded Allergies: AMOXICILLIN (Verified Allergy, Unknown, 12/24/16) Medications: see eMAR Past Medical History Cardiovascular: Reports: HTN Gastrointestinal/Genitourinary: Reports: GERD Neurologic/Psychiatric: Reports: depression/anxiety, other - unsteady gait Endocrine: Reports: DM, hypothyroidism Musculoskeletal/Integumentary: Reports: other - right above the elbow amputation Anesthesia Pre-op Phys. Exam Physician Exam Last Vital Signs Date Time Temp Pulse Resp B/P Pulse Ox O2 Delivery O2 Flow Rate FiO2 12/27/16 04:00 97.9 92 20 122/74 93 Room Air Constitutional: NAD Neurologic: other Cardiovascular: RRR Respiratory: CTA Gastrointestinal: S/NT/ND Airway Exam Mallampati Score: Class II MO: full Neck: supple TMD: 2fb ROM: full Teeth: missing Anesthesia Pre-op A/P Labs Labs Test 12/24/16 23:15 12/25/16 02:00 12/25/16 04:55 12/26/16 07:25 White Blood Count 10.8 K/UL (4.8-10.8) 8.3 K/UL (4.8-10.8) 8.2 K/UL (4.8-10.8) Red Blood Count 5.19 M/UL (4.70-6.10) 4.82 M/UL (4.70-6.10) 4.76 M/UL (4.70-6.10) Hemoglobin 15.6 G/DL (14.2-18.0) 14.2 G/DL (14.2-18.0) 14.0 G/DL (14.2-18.0) Hematocrit 45.7 % (42.0-52.0) 43.0 % (42.0-52.0) 42.3 % (42.0-52.0) Mean Corpuscular Volume 88 FL (80-99) 89 FL (80-99) 89 FL (80-99) Mean Corpuscular Hemoglobin 30.1 PG (27.0-31.0) 29.5 PG (27.0-31.0) 29.4 PG (27.0-31.0) Mean Corpuscular Hemoglobin Concent 34.1 G/DL (32.0-36.0) 33.0 G/DL (32.0-36.0) 33.1 G/DL (32.0-36.0) Red Cell Distribution Width 11.9 % (11.6-14.8) 11.7 % (11.6-14.8) 11.8 % (11.6-14.8) Platelet Count 289 K/UL (150-450) 243 K/UL (150-450) 283 K/UL (150-450) Mean Platelet Volume 5.9 FL (6.5-10.1) 6.0 FL (6.5-10.1) 6.3 FL (6.5-10.1) Neutrophils (%) (Auto) 62.7 % (45.0-75.0) 57.4 % (45.0-75.0) 66.5 % (45.0-75.0) Lymphocytes (%) (Auto) 25.9 % (20.0-45.0) 27.9 % (20.0-45.0) 20.0 % (20.0-45.0) Monocytes (%) (Auto) 8.6 % (1.0-10.0) 10.5 % (1.0-10.0) 10.6 % (1.0-10.0) Eosinophils (%) (Auto) 1.9 % (0.0-3.0) 3.0 % (0.0-3.0) 2.2 % (0.0-3.0) Basophils (%) (Auto) 0.9 % (0.0-2.0) 1.2 % (0.0-2.0) 0.7 % (0.0-2.0) Prothrombin Time 11.3 SEC (9.30-11.50) 10.2 SEC (9.30-11.50) 10.3 SEC (9.30-11.50) Prothromb Time International Ratio 1.1 (0.9-1.1) 1.0 (0.9-1.1) 1.0 (0.9-1.1) Activated Partial Thromboplast Time 34 SEC (23-33) 28 SEC (23-33) 28 SEC (23-33) Sodium Level 137 mEQ/L (135-145) 136 mEQ/L (135-145) 139 mEQ/L (135-145) Potassium Level 3.3 mEQ/L (3.4-4.9) 3.8 mEQ/L (3.4-4.9) 3.4 mEQ/L (3.4-4.9) Chloride Level 94 mEQ/L (98-107) 97 mEQ/L (98-107) 99 mEQ/L (98-107) Carbon Dioxide Level 24 mEQ/L (20-30) 23 mEQ/L (20-30) 27 mEQ/L (20-30) Anion Gap 19 (5-15) 16 (5-15) 13 (5-15) Blood Urea Nitrogen 12 mg/dL (7-23) 10 mg/dL (7-23) 7 mg/dL (7-23) Creatinine 0.6 mg/dL (0.7-1.2) 0.5 mg/dL (0.7-1.2) 0.5 mg/dL (0.7-1.2) Estimat Glomerular Filtration Rate > 60 mL/min (>60) > 60 mL/min (>60) > 60 mL/min (>60) Glucose Level 160 mg/dL (74-106) 171 mg/dL (74-106) 171 mg/dL (74-106) Calcium Level 9.5 mg/dL (8.6-10.2) 8.9 mg/dL (8.6-10.2) 8.7 mg/dL (8.6-10.2) Total Bilirubin 0.4 mg/dL (0.0-1.2) 0.4 mg/dL (0.0-1.2) Aspartate Amino Transf (AST/SGOT) 20 U/L (5-40) 24 U/L (5-40) Alanine Aminotransferase (ALT/SGPT) 42 U/L (3-41) 40 U/L (3-41) Alkaline Phosphatase 147 U/L (40-129) 135 U/L (40-129) Total Protein 7.8 g/dL (6.6-8.7) 7.2 g/dL (6.6-8.7) Albumin 3.9 g/dL (3.5-5.2) 3.6 g/dL (3.5-5.2) Globulin 3.9 g/dL 3.6 g/dL Albumin/Globulin Ratio 1.0 (1.0-2.7) 1.0 (1.0-2.7) Lipase 46 U/L (< 60) 50 U/L (< 60) Urine Color Yellow Urine Appearance Clear Urine pH 6 (4.5-8.0) Urine Specific We[place] 1.020 (1.005-1.035) Urine Protein Negative (NEGATIVE) Urine Glucose (UA) 1+ (NEGATIVE) Urine Ketones Negative (NEGATIVE) Urine Occult Blood Negative (NEGATIVE) Urine Nitrite Negative (NEGATIVE) Urine Bilirubin Negative (NEGATIVE) Urine Urobilinogen 1 MG/DL (0.0-1.0) Urine Leukocyte Esterase Negative (NEGATIVE) Amylase Level 32 U/L (10-110) Hematology Test 12/26/16 07:25 White Blood Count 8.2 K/UL (4.8-10.8) Red Blood Count 4.76 M/UL (4.70-6.10) Hemoglobin 14.0 G/DL (14.2-18.0) L Hematocrit 42.3 % (42.0-52.0) Mean Corpuscular Volume 89 FL (80-99) Mean Corpuscular Hemoglobin 29.4 PG (27.0-31.0) Mean Corpuscular Hemoglobin Concent 33.1 G/DL (32.0-36.0) Red Cell Distribution Width 11.8 % (11.6-14.8) Platelet Count 283 K/UL (150-450) Mean Platelet Volume 6.3 FL (6.5-10.1) L Neutrophils (%) (Auto) 66.5 % (45.0-75.0) Lymphocytes (%) (Auto) 20.0 % (20.0-45.0) Monocytes (%) (Auto) 10.6 % (1.0-10.0) H Eosinophils (%) (Auto) 2.2 % (0.0-3.0) Basophils (%) (Auto) 0.7 % (0.0-2.0) Coagulation Test 12/26/16 07:25 Prothrombin Time 10.3 SEC (9.30-11.50) Prothromb Time International Ratio 1.0 (0.9-1.1) Activated Partial Thromboplast Time 28 SEC (23-33) Chemistry Test 12/26/16 07:25 Sodium Level 139 mEQ/L (135-145) Potassium Level 3.4 mEQ/L (3.4-4.9) Chloride Level 99 mEQ/L (98-107) Carbon Dioxide Level 27 mEQ/L (20-30) Anion Gap 13 (5-15) Blood Urea Nitrogen 7 mg/dL (7-23) Creatinine 0.5 mg/dL (0.7-1.2) L Estimat Glomerular Filtration Rate > 60 mL/min (>60) Glucose Level 171 mg/dL (74-106) H Calcium Level 8.7 mg/dL (8.6-10.2) Risk Assessment & Plan Assessment: hematemesis Plan: egd Status Change Before Surgery: No Pre-Antibiotics Drug: DAVON Spears Dec 27, 2016 06:27
[2016-12-27 08:39] LABS: BASOPHILS % (AUTO) 0.8 % (0.0-2.0); EOSINOPHILS % (AUTO) 1.8 % (0.0-3.0); LYMPHOCYTES % (AUTO) 19.8 % (20.0-45.0); MEAN CORPUSCULAR HEMOGLOBIN 29.7 PG (27.0-31.0); MEAN CORPUSCULAR HGB CONC 33.5 G/DL (32.0-36.0); MEAN CORPUSCULAR VOLUME 89 FL (80-99); MONOCYTES % (AUTO) 10.1 % (1.0-10.0); NEUTROPHILS % (AUTO) 67.5 % (45.0-75.0); PLATELET COUNT 310 K/UL (150-450); RED CELL DISTRIBUTION WIDTH 11.7 % (11.6-14.8); WHITE BLOOD COUNT 8.6 K/UL (4.8-10.8)
[2016-12-27 08:53] LABS: ANION GAP 17 (5-15); CALCIUM 9.2 mg/dL (8.6-10.2); CARBON DIOXIDE 23 mEQ/L (20-30); CHLORIDE 98 mEQ/L (98-107); CREATININE 0.6 mg/dL (0.7-1.2); GLOMERULAR FILTRATION RATE > 60 mL/min (>60); HEMOLYSIS 7; POTASSIUM 3.4 mEQ/L (3.4-4.9); SODIUM 138 mEQ/L (135-145)
[2016-12-27] MEDS: Dyna-Hex 2% Top Sol 8oz TOPIC SCH (09:00)
--- NOTE | 2016-12-27 09:46 | Pulmonology Progress Note ---
Assessment/Plan Assessment/Plan ASSESSMENT hematemesis s/p EGD 12/27 gastritis distal esophagitis multiple shallow duodenal erosions psychosis hx of HTN DM PLAN OF CARE MS floor GI follows s/p EGD 12/27 with findings of 1. Distal esophagitis. 2. Gastritis. 3. Prominent fold at the angularis. 4. Multiple shallow duodenal erosions. per GI fup with biopsy results start diet as tolerated PPI IVF decrease rate if tolerated diet monitor HH, stable lipase WNL CXR negative Venous Duplex LE negative BS management with SS of insulin BP stable, no need for anti HTN meds dc planning case discussed and evaluated by supervising physician Subjective Allergies: Coded Allergies: AMOXICILLIN (Verified Allergy, Unknown, 12/24/16) Subjective no further episodes of hematemesis s/p EGD this am HH stable Objective Last 24 Hour Vital Signs Date Time Temp Pulse Resp B/P Pulse Ox O2 Delivery O2 Flow Rate FiO2 12/27/16 08:15 97.9 92 20 133/86 96 Room Air 12/27/16 04:00 97.9 92 20 122/74 93 Room Air 12/26/16 23:46 98.2 87 20 131/74 93 Room Air 12/26/16 20:00 98.2 93 20 124/79 95 Room Air 12/26/16 16:16 97.6 93 23 144/79 95 Room Air 12/26/16 11:54 98.2 85 21 137/75 94 Room Air Intake and Output 12/26/16 12/27/16 19:00 07:00 Intake Total 480 ml Output Total 300 ml Balance 480 ml -300 ml Intake Oral 480 ml Output Urine Total 300 ml # Voids 1 # Bowel Movements 1 General Appearance: WD/WN, no acute distress HEENT: normocephalic, atraumatic, anicteric, mucous membranes moist Respiratory/Chest: lungs clear, no respiratory distress Cardiovascular: normal rate, regular rhythm Abdomen: normal bowel sounds, soft, non tender Extremities: other - RUE stump clean Neurologic/Psychiatric: alert, responsive Musculoskeletal: normal muscle bulk Microbiology Date/Time Source Procedure Growth Status 12/25/16 00:34 Rectum VRE Culture - Final Enterococcus Faecalis - Vre Complete Laboratory Tests 12/27/16 08:10: White Blood Count 8.6, Red Blood Count 5.00, Hemoglobin 14.8, Hematocrit 44.3, Mean Corpuscular Volume 89, Mean Corpuscular Hemoglobin 29.7, Mean Corpuscular Hemoglobin Concent 33.5, Red Cell Distribution Width 11.7, Platelet Count 310, Mean Platelet Volume 6.0L, Neutrophils (%) (Auto) 67.5, Lymphocytes (%) (Auto) 19.8L, Monocytes (%) (Auto) 10.1H, Eosinophils (%) (Auto) 1.8, Basophils (%) ( Auto) 0.8, Sodium Level 138, Potassium Level 3.4, Chloride Level 98, Carbon Dioxide Level 23, Anion Gap 17H, Blood Urea Nitrogen 7, Creatinine 0.6L, Estimat Glomerular Filtration Rate > 60, Glucose Level 198H, Calcium Level 9.2 Current Medications Medications (Trade) Dose Ordered Sig/Elis Route PRN Reason Start Time Stop Time Status Last Admin Dose Admin Acetaminophen (Tylenol) 650 mg Q4H PRN ORAL fever 12/25/16 00:00 01/24/17 00:00 Al Hydroxide/Mg Hydroxide (Mylanta II) 30 ml Q6H PRN ORAL dyspepsia 12/25/16 00:00 01/24/17 00:00 Chlorhexidine Gluconate (Nataly-Hex 2%) 1 applic DAILY TOPIC 12/26/16 13:00 01/25/17 12:59 Dextrose (Dextrose 50%) STAT PRN IV Hypoglycemia 12/25/16 16:00 01/24/17 15:59 Dextrose STAT PRN IV Hypoglycemia 12/25/16 00:00 01/24/17 00:00 Dextrose/Sodium Chloride (D5ns) 1,000 ml @ 100 mls/hr Q10H IV 12/24/16 23:51 01/23/17 23:50 12/25/16 20:05 Diphenhydramine HCl (Benadryl) 25 mg Q6H PRN ORAL Itching/Pruritis 12/25/16 00:00 01/24/17 00:00 Famotidine (Pepcid I.v.) 20 mg Q12HR IVP 12/25/16 21:00 01/24/17 20:59 12/25/16 20:37 Insulin Aspart (NovoLOG) BEFORE MEALS AND HS SUBQ 12/25/16 17:30 01/24/17 17:29 12/26/16 20:51 Morphine Sulfate (Morphine Sulfate) 2 mg Q4H PRN IVP severe Pain (Pain Scale 7-10) 12/25/16 00:00 01/01/17 00:00 Nitroglycerin (Ntg) 0.4 mg Q5M X 3 DOSES PRN SL Prn Chest Pain 12/25/16 00:00 01/24/17 00:00 Ondansetron HCl (Zofran) 4 mg Q6H PRN IVP Nausea & Vomiting 12/25/16 00:00 01/24/17 00:00 Polyethylene Glycol (Miralax) 17 gm HSPRN PRN ORAL Constipation 12/25/16 00:00 01/24/17 00:00 Temazepam (Restoril) 15 mg HSPRN PRN ORAL Insomnia 12/25/16 00:00 01/01/17 00:00 Henrique MorseNorthwell HealthLaureen Kruger NP Dec 27, 2016 09:46
--- NOTE | 2016-12-27 10:39 | Diagnostic Imaging Report ---
Indications: Needs long-term IV access Technique: Ultrasound confirms patent compressible left basilic vein. Total sterile technique, including sterile probe cover and sterile gel, hat, mask,, sterile gown, large sterile drape, and preparation with 2% chlorhexidine utilized. Local anesthesia with 1% lidocaine. Under real-time ultrasound guidance, puncture basilic vein using 21-gauge needle, documented and archived, passage 0.018 guidewire under direct fluoroscopy, which was used to determine appropriate catheter length, exchange for 5 Divehi peel-away sheath. 5 Divehi Bard dual-lumen power PICC cut to 43 cm. It was inserted through the peel-away sheath. Peel-away sheath and guidewire removed. Catheter fixed to the skin. Both catheter ports aspirated and flushed. Patient tolerated procedure well, without immediate complication. Digital radiograph documents satisfactory catheter tip position, at the cavoatrial junction. Total fluoroscopy time 0.2 minutes. Total dose area product 8.1 dGycm2 Impression: Successful placement of left arm PICC under sonographic and fluoroscopic guidance, as described above.
--- NOTE | 2016-12-27 10:56 | Pre-Procedure Note/Attestation ---
Pre-Procedure Note/Attestation Complete Prior to Procedure Planned Procedure: not applicable Procedure Narrative: egd Indications for Procedure Pre-Operative Diagnosis: gib Attestation I attest that I discussed the nature of the procedure; its benefits; risks and complications; and alternatives (and the risks and benefits of such alternatives ), prior to the procedure, with the patient (or the patient's legal employee representative). I attest that, if there was a reasonable possibility of needing a blood transfusion, the patient (or the patient's legal employee representative) was given the [facility] standardized written summary, pursuant to the Nestor Brianda Blood Safety Act ([place] Health and Safety Code # 1645, as amended). I attest that I re-evaluated the patient just prior to the surgery and that there has been no change in the patient's H&P, except as documented below: HANNA BRANDON Dec 27, 2016 10:56
[2016-12-27] MEDS ORDERED: Lidocaine 1% MPF 10mg/ml 5ml ONE (11:15)
[2016-12-27] MEDS ORDERED: Propofol 10mg/ml 20ml IV ONE (11:15)
[2016-12-27] MEDS ORDERED: NS 550ML IV ONE (11:20)
--- NOTE | 2016-12-27 11:50 | Endoscopy Procedure Note ---
Endoscopy Procedure Note Indication for Procedure: gib Procedures Performed: EGD Operative Findings/Diagnosis: esophagitis Specimen: yes Pt Tolerated Procedure Well: Yes Estimated Blood Loss: none Anesthesiologist: israel chawla Anesthesia: MAC Implant(s) used?: No 50 yrs or older w/o bx or poly: Not Applicable 10yrs. F/U not recommended: Not Applicable HANNA BRANDON Dec 27, 2016 11:50
--- NOTE | 2016-12-27 12:45 | Diagnostic Imaging Report ---
APPROVED REPORT CPT Code: 34536 Present Symptoms Comments: Knee pain BILATERAL: Imaging reveals a patent deep venous system bilaterally. There is no evidence of thrombus within the femoral, popliteal or tibial segments. The greater saphenous veins are also within normal limits. Doppler indicates normal spontaneous flow within these segments.
[2016-12-27] MEDS: Famotidine 20 MG/ 2ML VIAL IVP SCH ×2 (12:56→21:08)
--- NOTE | 2016-12-27 13:08 | General Progress Note ---
Assessment/Plan Problem List: (1) Hematemesis ICD Codes: K92.0 - Hematemesis SNOMED: 2357257 Qualifiers: Qualified Codes: K92.0 - Hematemesis (2) Psychosis ICD Codes: F29 - Unspecified psychosis not due to a substance or known physiological condition SNOMED: 34289444 (3) HTN (hypertension) ICD Codes: I10 - Essential (primary) hypertension SNOMED: 98788878 Status: stable, progressing, tolerating diet Assessment/Plan ot pt diet adv diet gi f/u cbc bmp am dc plan Subjective Constitutional: Reports: weakness Allergies: Coded Allergies: AMOXICILLIN (Verified Allergy, Unknown, 12/24/16) All Systems: reviewed and negative except above Subjective calm in bed s/p egd Objective Last 24 Hour Vital Signs Date Time Temp Pulse Resp B/P Pulse Ox O2 Delivery O2 Flow Rate FiO2 12/27/16 12:26 97.6 89 21 122/79 95 Room Air 12/27/16 12:15 91 23 145/74 96 Room Air 12/27/16 12:10 90 21 146/69 94 Room Air 12/27/16 12:05 91 21 132/73 95 Nasal Cannula 3.0 12/27/16 11:58 97.8 94 25 133/86 95 Nasal Cannula 3.0 12/27/16 08:15 97.9 92 20 133/86 96 Room Air 12/27/16 04:00 97.9 92 20 122/74 93 Room Air 12/26/16 23:46 98.2 87 20 131/74 93 Room Air 12/26/16 20:00 98.2 93 20 124/79 95 Room Air 12/26/16 16:16 97.6 93 23 144/79 95 Room Air Intake and Output 12/26/16 12/27/16 19:00 07:00 Intake Total 480 ml Output Total 300 ml Balance 480 ml -300 ml Intake Oral 480 ml Output Urine Total 300 ml # Voids 1 # Bowel Movements 1 Laboratory Tests 12/27/16 08:10: White Blood Count 8.6, Red Blood Count 5.00, Hemoglobin 14.8, Hematocrit 44.3, Mean Corpuscular Volume 89, Mean Corpuscular Hemoglobin 29.7, Mean Corpuscular Hemoglobin Concent 33.5, Red Cell Distribution Width 11.7, Platelet Count 310, Mean Platelet Volume 6.0L, Neutrophils (%) (Auto) 67.5, Lymphocytes (%) (Auto) 19.8L, Monocytes (%) (Auto) 10.1H, Eosinophils (%) (Auto) 1.8, Basophils (%) ( Auto) 0.8, Sodium Level 138, Potassium Level 3.4, Chloride Level 98, Carbon Dioxide Level 23, Anion Gap 17H, Blood Urea Nitrogen 7, Creatinine 0.6L, Estimat Glomerular Filtration Rate > 60, Glucose Level 198H, Calcium Level 9.2 Height (Feet): 5 Height (Inches): 5.00 Weight (Pounds): 175 General Appearance: alert EENT: normal ENT inspection Neck: normal alignment Cardiovascular: normal peripheral pulses, normal rate, regular rhythm Respiratory/Chest: chest wall non-tender, lungs clear, normal breath sounds Abdomen: normal bowel sounds, non tender, soft Extremities: normal inspection Edema: no edema noted Arm (L), no edema noted Arm (R), no edema noted Leg (L), no edema noted Leg (R), no edema noted Pedal (L), no edema noted Pedal (R), no edema noted Generalized Neurologic: responsive, motor weakness Skin: normal pigmentation, warm/dry RAF JARRETT Dec 27, 2016 13:08
--- NOTE | 2016-12-27 13:15 | Infectious Diseases Prog Note ---
Assessment/Plan Problems: (1) Colonization with VRE (vancomycin-resistant enterococcus) Assessment & Plan: keep in contact isolation for now , no need for antibiotics (2) Hematemesis Assessment & Plan: monitor H/H, continue PPI, transfuse as needed , GI is following (3) HTN (hypertension) Assessment & Plan: continue meds, monitor BP (4) Psychosis Assessment & Plan: continue psych meds (5) Diabetes mellitus Subjective Allergies: Coded Allergies: AMOXICILLIN (Verified Allergy, Unknown, 12/24/16) Objective Vital Signs Last 24 Hour Vital Signs Date Time Temp Pulse Resp B/P Pulse Ox O2 Delivery O2 Flow Rate FiO2 12/27/16 12:26 97.6 89 21 122/79 95 Room Air 12/27/16 12:15 91 23 145/74 96 Room Air 12/27/16 12:10 90 21 146/69 94 Room Air 12/27/16 12:05 91 21 132/73 95 Nasal Cannula 3.0 12/27/16 11:58 97.8 94 25 133/86 95 Nasal Cannula 3.0 12/27/16 08:15 97.9 92 20 133/86 96 Room Air 12/27/16 04:00 97.9 92 20 122/74 93 Room Air 12/26/16 23:46 98.2 87 20 131/74 93 Room Air 12/26/16 20:00 98.2 93 20 124/79 95 Room Air 12/26/16 16:16 97.6 93 23 144/79 95 Room Air Height (Feet): 5 Height (Inches): 5.00 Weight (Pounds): 175 Microbiology Date/Time Source Procedure Growth Status 12/25/16 00:34 Nasal Nares MRSA Culture - Final NO METHICILLIN RESISTANT STAPH AUREUS... Complete 12/25/16 00:34 Rectum VRE Culture - Final Enterococcus Faecalis - Vre Complete Laboratory Tests Test 12/27/16 08:10 White Blood Count 8.6 K/UL (4.8-10.8) Red Blood Count 5.00 M/UL (4.70-6.10) Hemoglobin 14.8 G/DL (14.2-18.0) Hematocrit 44.3 % (42.0-52.0) Mean Corpuscular Volume 89 FL (80-99) Mean Corpuscular Hemoglobin 29.7 PG (27.0-31.0) Mean Corpuscular Hemoglobin Concent 33.5 G/DL (32.0-36.0) Red Cell Distribution Width 11.7 % (11.6-14.8) Platelet Count 310 K/UL (150-450) Mean Platelet Volume 6.0 FL (6.5-10.1) L Neutrophils (%) (Auto) 67.5 % (45.0-75.0) Lymphocytes (%) (Auto) 19.8 % (20.0-45.0) L Monocytes (%) (Auto) 10.1 % (1.0-10.0) H Eosinophils (%) (Auto) 1.8 % (0.0-3.0) Basophils (%) (Auto) 0.8 % (0.0-2.0) Sodium Level 138 mEQ/L (135-145) Potassium Level 3.4 mEQ/L (3.4-4.9) Chloride Level 98 mEQ/L (98-107) Carbon Dioxide Level 23 mEQ/L (20-30) Anion Gap 17 (5-15) H Blood Urea Nitrogen 7 mg/dL (7-23) Creatinine 0.6 mg/dL (0.7-1.2) L Estimat Glomerular Filtration Rate > 60 mL/min (>60) Glucose Level 198 mg/dL (74-106) H Calcium Level 9.2 mg/dL (8.6-10.2) Current Medications Medications (Trade) Dose Ordered Sig/Elis Route PRN Reason Start Time Stop Time Status Last Admin Dose Admin Acetaminophen (Tylenol) 650 mg Q4H PRN ORAL fever 12/25/16 00:00 01/24/17 00:00 Al Hydroxide/Mg Hydroxide (Mylanta II) 30 ml Q6H PRN ORAL dyspepsia 12/25/16 00:00 01/24/17 00:00 Chlorhexidine Gluconate (Nataly-Hex 2%) 1 applic DAILY TOPIC 12/26/16 13:00 01/25/17 12:59 Dextrose (Dextrose 50%) STAT PRN IV Hypoglycemia 12/25/16 16:00 01/24/17 15:59 Dextrose STAT PRN IV Hypoglycemia 12/25/16 00:00 01/24/17 00:00 Dextrose/Sodium Chloride (D5ns) 1,000 ml @ 100 mls/hr Q10H IV 12/24/16 23:51 01/23/17 23:50 12/25/16 20:05 Diphenhydramine HCl (Benadryl) 25 mg Q6H PRN ORAL Itching/Pruritis 12/25/16 00:00 01/24/17 00:00 Famotidine (Pepcid I.v.) 20 mg Q12HR IVP 12/25/16 21:00 01/24/17 20:59 12/27/16 12:56 Insulin Aspart (NovoLOG) BEFORE MEALS AND HS SUBQ 12/25/16 17:30 01/24/17 17:29 12/26/16 20:51 Morphine Sulfate (Morphine Sulfate) 2 mg Q4H PRN IVP severe Pain (Pain Scale 7-10) 12/25/16 00:00 01/01/17 00:00 Nitroglycerin (Ntg) 0.4 mg Q5M X 3 DOSES PRN SL Prn Chest Pain 12/25/16 00:00 01/24/17 00:00 Ondansetron HCl (Zofran) 4 mg Q6H PRN IVP Nausea & Vomiting 12/25/16 00:00 01/24/17 00:00 Polyethylene Glycol (Miralax) 17 gm HSPRN PRN ORAL Constipation 12/25/16 00:00 01/24/17 00:00 Temazepam (Restoril) 15 mg HSPRN PRN ORAL Insomnia 12/25/16 00:00 01/01/17 00:00 Dante Rodriguez M.D. Dec 27, 2016 13:14
--- NOTE | 2016-12-27 13:27 | Immediate Post-Op Evaluation ---
Immediate Post-Op Evalulation Immediate Post-Op Evalulation Procedure: egd Date of Evaluation: Dec 27, 2016 Time of Evaluation: 12:20 IV Fluids: 0.9ns 200ml Blood Products: none Estimated Blood Loss: negligible Blood Pressure Systolic: 145 Blood Pressure Diastolic: 74 Pulse Rate: 91 Respiratory Rate: 18 O2 Sat by Pulse Oximetry: 95 Temperature (Fahrenheit): 97.8 Pain Score (1-10): 0 Nausea: No Vomiting: No Complications none Patient Status: awake, reacts, patent Hydration Status: adequate Drug: DAVON Spears Dec 27, 2016 13:27
--- NOTE | 2016-12-27 13:29 | 48 Hour Post Anesthesia Eval ---
Post Anesthesia Evaluation Procedure: egd Date of Evaluation: Dec 27, 2016 Time of Evaluation: 13:27 Blood Pressure Systolic: 140 0: 74 Pulse Rate: 98 Respiratory Rate: 18 Temperature (Fahrenheit): 97.8 O2 Sat by Pulse Oximetry: 96 Airway: patent Nausea: No Vomiting: No Pain Intensity: 0 Hydration Status: adequate Cardiopulmonary Status: stable Mental Status/LOC: patient returned to baseline Post-Anesthesia Complications: none Follow-up care needed: N/A DAVON GALICIA Dec 27, 2016 13:29
--- NOTE | 2016-12-27 16:31 | Consultation ---
DATE OF CONSULTATION: INFECTIOUS DISEASE CONSULTATION REQUESTING PHYSICIAN: Jose Oneal D.O. REASON FOR CONSULTATION: Positive rectal culture for vancomycin resistant enterococcus. Recommendation for antibiotics treatment and management. HISTORY OF PRESENT ILLNESS: The patient is a 51-year-old male with past medical history of diabetes, hypertension, and psychiatric disorder, who was admitted to the hospital from care home with epigastric pain and hematemesis x2. The patient was not vomiting in the emergency room. When he arrived he had no diarrhea or melena in his stool. His abdominal pain is rated 8/10, cramps in nature. The patient was found to be anemic. He was evaluated by Gastroenterology in the emergency room and he underwent EGD, which showed evidence of esophagitis. The patient had screening culture with the rectal swab, which came back positive for vancomycin resistant enterococcus. I was consulted by the primary provider for antibiotics treatment and further management. As of note, the patient is poor historian, cannot provide any history. History was mainly obtained from the medical record. PAST MEDICAL HISTORY: Significant for hypertension, diabetes, and psychiatric disorder. PAST SURGICAL HISTORY: Negative. MEDICATIONS: He is on long list of medications including famotidine, insulin, acetaminophen, morphine, polyethylene glycol, ondansetron, temazepam, diphenhydramine, nitroglycerin and dextrose. ALLERGIES: He is allergic to amoxicillin. SOCIAL HISTORY: He is care home resident. No recent drugs, tobacco or alcohol. FAMILY HISTORY: Unable to obtain. PHYSICAL EXAMINATION: GENERAL: Middle-aged male in lying in bed, alert, comfortable, not in distress. VITAL SIGNS: Temperature 97.6 degrees, pulse 89, respirations 21, blood pressure 122/79 and saturation 95% on room air. HEENT: Normocephalic and atraumatic. Pupils reactive to light. Moist oral mucosa. NECK: Supple. No lymphadenopathy. CARDIOVASCULAR: Regular rate and rhythm. No murmur. LUNGS: Clear bilaterally. No wheezing. No rhonchi. ABDOMEN: Soft, nontender, and nondistended. Positive bowel sounds. No hepatosplenomegaly. EXTREMITIES: No edema or cyanosis. Right upper extremity amputation. Stump site looks okay. SKIN: No rash or hives, but had superficial wounds on both lower extremities. LABORATORY AND DIAGNOSTIC DATA: Labs today showed white count of 8.6, hemoglobin of 14.8, and platelet count of 310,000. BUN of 7, creatinine of 0.6, potassium of 3.4, and glucose of 198. Urinalysis was negative for infection. Microbiology, VRE screening in the rectum positive. MRSA screening in the nares is negative. Imaging, chest x-ray showed no definite acute process. Renal Doppler was negative for DVT in both legs. ASSESSMENT AND RECOMMENDATION: 1. Colonization with vancomycin resistant enterococcus. Recommend keep in contact isolation for now. No need for antibiotics treatment. The patient did just colonize. 2. Hematemesis. Monitor hemoglobin and hematocrit. Continue PPI. Transfuse blood if needed status post esophagogastroduodenoscopy, Gastrointestinal is following. 3. Hypertension. Continue medications. Monitor blood pressure. 4. Diabetes. Recommend tight glycemic control to keep blood glucose between 80 to 125. 5. Psychosis. Continue psychiatric medications as needed. Thank you. Dante Rodriguez M.D. DR: BRANDON JOB#: [id number] CC:
--- NOTE | 2016-12-27 16:31 | Procedure Note ---
DATE OF PROCEDURE: 12/27/2016 SURGEON: Kirill Mcgraw M.D. PROCEDURE: Upper endoscopy with biopsy. ANESTHESIOLOGIST: Mary Marroquin M.D. INSTRUMENT: Olympus adult flexible upper endoscope. INDICATION: Upper gastrointestinal bleeding. REASON FOR PROCEDURE: The procedure, risks, benefits, and possible consequences, including hemorrhage, aspiration, perforation and infection, and alternative treatments, were explained to the patient/legal guardian by Dr. Kirill Mcgraw and the patient/legal guardian understood and accepted these risks. DESCRIPTION OF PROCEDURE: After informed consent was obtained and the patient was adequately sedated, Olympus upper endoscope was advanced from mouth into the second portion of duodenum and retroflexion was performed in the stomach. The patient had evidence of severe distal esophagitis. Random biopsy from distal esophagus was obtained. In the stomach, there was diffuse gastritis. Random biopsy from antrum was obtained. The patient also had evidence of some prominence at the angularis prominent fold at the angularis which was also biopsied. In the duodenum, there was multiple shallow erosions. No active bleeding at this time. The patient tolerated the procedure very well without complication. SUMMARY OF FINDINGS: 1. Distal esophagitis. 2. Gastritis. 3. Prominent fold at the angularis. 4. Multiple shallow duodenal erosions. RECOMMENDATIONS: 1. Followup biopsy results and treat accordingly. 2. PPI. 3. Resume diet. I want to thank, Dr. Jose Oneal, for this kind referral. Kirill Mcgraw M.D. DR: Isaias JOB#: [id number] CC: Jose Oneal D.O.
[2016-12-28] VITALS: BP 157/72
[2016-12-28 04:00] VITALS: BP 133/68
[2016-12-28] MEDS: D5NS 1,000 ML IV SCH (04:08)
[2016-12-28] MEDS: NovoLOG Insulin Flexpen SUBQ SCH ×4 (06:10→22:17)
[2016-12-28 06:36] LABS: BASOPHILS % (AUTO) 0.7 % (0.0-2.0); EOSINOPHILS % (AUTO) 1.5 % (0.0-3.0); LYMPHOCYTES % (AUTO) 23.4 % (20.0-45.0); MEAN CORPUSCULAR HEMOGLOBIN 29.8 PG (27.0-31.0); MEAN CORPUSCULAR VOLUME 90 FL (80-99); MEAN PLATELET VOLUME 5.6 FL (6.5-10.1); MONOCYTES % (AUTO) 10.4 % (1.0-10.0); PLATELET COUNT 250 K/UL (150-450); RED BLOOD COUNT 4.26 M/UL (4.70-6.10); RED CELL DISTRIBUTION WIDTH 12.3 % (11.6-14.8); WHITE BLOOD COUNT 9.2 K/UL (4.8-10.8)
[2016-12-28 06:45] LABS: ANION GAP 15 (5-15); CALCIUM 7.4 mg/dL (8.6-10.2); CARBON DIOXIDE 23 mEQ/L (20-30); CHLORIDE 103 mEQ/L (98-107); CREATININE 0.5 mg/dL (0.7-1.2); GLOMERULAR FILTRATION RATE > 60 mL/min (>60); HEMOLYSIS 1; POTASSIUM 2.9 mEQ/L (3.4-4.9); SODIUM 141 mEQ/L (135-145)
[2016-12-28 08:00] VITALS: BP 127/72
--- NOTE | 2016-12-28 08:45 | General Progress Note ---
Assessment/Plan Problem List: (1) Hematemesis ICD Codes: K92.0 - Hematemesis SNOMED: 6833857 Qualifiers: Qualified Codes: K92.0 - Hematemesis (2) Psychosis ICD Codes: F29 - Unspecified psychosis not due to a substance or known physiological condition SNOMED: 21427946 (3) HTN (hypertension) ICD Codes: I10 - Essential (primary) hypertension SNOMED: 71817937 Status: stable, progressing, tolerating diet Assessment/Plan ot pt diet adv diet gi f/u cbc bmp am dc plan Subjective Constitutional: Reports: weakness Allergies: Coded Allergies: AMOXICILLIN (Verified Allergy, Unknown, 12/24/16) All Systems: reviewed and negative except above Subjective calm in bed s/p egd Objective Last 24 Hour Vital Signs Date Time Temp Pulse Resp B/P Pulse Ox O2 Delivery O2 Flow Rate FiO2 12/28/16 04:00 97.0 87 18 133/68 Room Air 12/28/16 00:00 98.1 91 20 157/72 94 Room Air 12/27/16 20:00 98.1 97 22 134/63 92 Room Air 12/27/16 16:06 98.4 65 21 109/68 97 Room Air 12/27/16 13:29 98 18 96 12/27/16 13:27 91 18 95 12/27/16 12:26 97.6 89 21 122/79 95 Room Air 12/27/16 12:15 91 23 145/74 96 Room Air 12/27/16 12:10 90 21 146/69 94 Room Air 12/27/16 12:05 91 21 132/73 95 Nasal Cannula 3.0 12/27/16 11:58 97.8 94 25 133/86 95 Nasal Cannula 3.0 Intake and Output 12/27/16 12/28/16 19:00 07:00 Intake Total 830 ml 520 ml Output Total 200 ml 350 ml Balance 630 ml 170 ml Intake Oral 480 ml IV Total 350 ml 520 ml Output Urine Total 200 ml 350 ml Estimated Blood Loss 0 ml # Voids 2 2 # Bowel Movements 1 Laboratory Tests 12/28/16 05:10: White Blood Count 9.2, Red Blood Count 4.26L, Hemoglobin 12.7L, Hematocrit 38.4L , Mean Corpuscular Volume 90, Mean Corpuscular Hemoglobin 29.8, Mean Corpuscular Hemoglobin Concent 33.0, Red Cell Distribution Width 12.3, Platelet Count 250, Mean Platelet Volume 5.6L, Neutrophils (%) (Auto) 64.0, Lymphocytes ( %) (Auto) 23.4, Monocytes (%) (Auto) 10.4H, Eosinophils (%) (Auto) 1.5, Basophils (%) (Auto) 0.7, Sodium Level 141, Potassium Level 2.9L, Chloride Level 103, Carbon Dioxide Level 23, Anion Gap 15, Blood Urea Nitrogen 6L, Creatinine 0.5L, Estimat Glomerular Filtration Rate > 60, Glucose Level 645#*H, Calcium Level 7.4L 12/28/16 08:00: Sodium Level [Pending], Potassium Level [Pending], Chloride Level [Pending], Carbon Dioxide Level [Pending], Blood Urea Nitrogen [Pending], Creatinine [ Pending], Estimat Glomerular Filtration Rate [Pending], Glucose Level [Pending] , Calcium Level [Pending] Height (Feet): 5 Height (Inches): 5.00 Weight (Pounds): 175 General Appearance: lethargic EENT: normal ENT inspection Neck: normal alignment Cardiovascular: normal peripheral pulses, normal rate, regular rhythm Respiratory/Chest: chest wall non-tender, lungs clear, normal breath sounds Abdomen: normal bowel sounds, non tender, soft Extremities: normal inspection Edema: no edema noted Arm (L), no edema noted Arm (R), no edema noted Leg (L), no edema noted Leg (R), no edema noted Pedal (L), no edema noted Pedal (R), no edema noted Generalized Neurologic: responsive, motor weakness Skin: normal pigmentation, warm/dry RAF JARRETT Dec 28, 2016 08:45
[2016-12-28 08:47] LABS: ANION GAP 12 (5-15); CALCIUM 8.6 mg/dL (8.6-10.2); CARBON DIOXIDE 25 mEQ/L (20-30); CHLORIDE 102 mEQ/L (98-107); CREATININE 0.6 mg/dL (0.7-1.2); GLOMERULAR FILTRATION RATE > 60 mL/min (>60); HEMOLYSIS 3; POTASSIUM 3.5 mEQ/L (3.4-4.9); SODIUM 139 mEQ/L (135-145)
[2016-12-28] MEDS: Dyna-Hex 2% Top Sol 8oz TOPIC SCH (09:00)
[2016-12-28] MEDS: Famotidine 20 MG/ 2ML VIAL IVP SCH (09:00)
[2016-12-28] MEDS ORDERED: D5NS 1000ml IV ONE ×2 (11:25)
[2016-12-28 12:00] VITALS: BP 131/88
--- NOTE | 2016-12-28 12:26 | Pulmonology Progress Note ---
Assessment/Plan Assessment/Plan ASSESSMENT hematemesis s/p EGD 12/27 gastritis distal esophagitis multiple shallow duodenal erosions psychosis hx of HTN DM PLAN OF CARE MS floor GI follows s/p EGD 12/27 with findings of 1. Distal esophagitis. 2. Gastritis. 3. Prominent fold at the angularis. 4. Multiple shallow duodenal erosions. per GI fup with biopsy results tolerates diet PPI IVF decrease rate if tolerated diet monitor HH, stable lipase WNL CXR negative Venous Duplex LE negative BS management with SS of insulin BP stable, no need for anti HTN meds dc planning per PMD after GI clearance case discussed and evaluated by supervising physician Subjective Allergies: Coded Allergies: AMOXICILLIN (Verified Allergy, Unknown, 12/24/16) Subjective no further episodes of hematemesis s/p EGD this am HH stable Objective Last 24 Hour Vital Signs Date Time Temp Pulse Resp B/P Pulse Ox O2 Delivery O2 Flow Rate FiO2 12/28/16 08:00 97.9 92 20 127/72 93 Room Air 12/28/16 04:00 97.0 87 18 133/68 Room Air 12/28/16 00:00 98.1 91 20 157/72 94 Room Air 12/27/16 20:00 98.1 97 22 134/63 92 Room Air 12/27/16 16:06 98.4 65 21 109/68 97 Room Air 12/27/16 13:29 98 18 96 12/27/16 13:27 91 18 95 12/27/16 12:26 97.6 89 21 122/79 95 Room Air Intake and Output 12/27/16 12/28/16 19:00 07:00 Intake Total 830 ml 520 ml Output Total 200 ml 350 ml Balance 630 ml 170 ml Intake Oral 480 ml IV Total 350 ml 520 ml Output Urine Total 200 ml 350 ml Estimated Blood Loss 0 ml # Voids 2 2 # Bowel Movements 1 Objective General Appearance: WD/WN, no acute distress HEENT: normocephalic, atraumatic, anicteric, mucous membranes moist Respiratory/Chest: lungs clear, no respiratory distress Cardiovascular: normal rate, regular rhythm Abdomen: normal bowel sounds, soft, non tender Extremities: RUE stump clean Neurologic/Psychiatric: alert, responsive Musculoskeletal: normal muscle bulk Laboratory Tests 12/28/16 05:10: White Blood Count 9.2, Red Blood Count 4.26L, Hemoglobin 12.7L, Hematocrit 38.4L , Mean Corpuscular Volume 90, Mean Corpuscular Hemoglobin 29.8, Mean Corpuscular Hemoglobin Concent 33.0, Red Cell Distribution Width 12.3, Platelet Count 250, Mean Platelet Volume 5.6L, Neutrophils (%) (Auto) 64.0, Lymphocytes ( %) (Auto) 23.4, Monocytes (%) (Auto) 10.4H, Eosinophils (%) (Auto) 1.5, Basophils (%) (Auto) 0.7, Sodium Level 141, Potassium Level 2.9L, Chloride Level 103, Carbon Dioxide Level 23, Anion Gap 15, Blood Urea Nitrogen 6L, Creatinine 0.5L, Estimat Glomerular Filtration Rate > 60, Glucose Level 645#*H, Calcium Level 7.4L 12/28/16 08:00: Sodium Level 139, Potassium Level 3.5, Chloride Level 102, Carbon Dioxide Level 25, Anion Gap 12, Blood Urea Nitrogen 7, Creatinine 0.6L, Estimat Glomerular Filtration Rate > 60, Glucose Level 264#H, Calcium Level 8.6 Current Medications Medications (Trade) Dose Ordered Sig/Elis Route PRN Reason Start Time Stop Time Status Last Admin Dose Admin Acetaminophen (Tylenol) 650 mg Q4H PRN ORAL fever 12/25/16 00:00 01/24/17 00:00 Al Hydroxide/Mg Hydroxide (Mylanta II) 30 ml Q6H PRN ORAL dyspepsia 12/25/16 00:00 01/24/17 00:00 Chlorhexidine Gluconate 1 applic 1 applic DAILY TOPIC 12/26/16 13:00 01/25/17 12:59 12/28/16 09:00 Dextrose (Dextrose 50%) STAT PRN IV Hypoglycemia 12/25/16 00:00 01/24/17 00:00 Dextrose (Dextrose 50%) STAT PRN IV Hypoglycemia 12/25/16 16:00 01/24/17 15:59 Dextrose/Sodium Chloride (D5ns) 1,000 ml @ 60 mls/hr [id number] IV 12/27/16 23:00 01/26/17 22:59 12/28/16 04:08 Diphenhydramine HCl (Benadryl) 25 mg Q6H PRN ORAL Itching/Pruritis 12/25/16 00:00 01/24/17 00:00 Famotidine (Pepcid I.v.) 20 mg Q12HR IVP 12/25/16 21:00 01/24/17 20:59 12/28/16 09:00 Insulin Aspart (NovoLOG) BEFORE MEALS AND HS SUBQ 12/25/16 17:30 01/24/17 17:29 12/28/16 06:10 Morphine Sulfate (Morphine Sulfate) 2 mg Q4H PRN IVP severe Pain (Pain Scale 7-10) 12/25/16 00:00 01/01/17 00:00 Nitroglycerin (Ntg) 0.4 mg Q5M X 3 DOSES PRN SL Prn Chest Pain 12/25/16 00:00 01/24/17 00:00 Ondansetron HCl (Zofran) 4 mg Q6H PRN IVP Nausea & Vomiting 12/25/16 00:00 01/24/17 00:00 Polyethylene Glycol (Miralax) 17 gm HSPRN PRN ORAL Constipation 12/25/16 00:00 01/24/17 00:00 Temazepam (Restoril) 15 mg HSPRN PRN ORAL Insomnia 12/25/16 00:00 01/01/17 00:00 Henrique MorseRoche[facility] HealthLaureen Kruger NP Dec 28, 2016 12:26
--- NOTE | 2016-12-28 14:46 | Infectious Diseases Prog Note ---
Assessment/Plan Problems: (1) Colonization with VRE (vancomycin-resistant enterococcus) Assessment & Plan: keep in contact isolation for now , no need for antibiotics (2) Hematemesis Assessment & Plan: monitor H/H, continue PPI, transfuse as needed , GI is following (3) HTN (hypertension) Assessment & Plan: continue meds, monitor BP (4) Psychosis Assessment & Plan: continue psych meds (5) Diabetes mellitus Assessment & Plan: recommend tight glycemic control to keep blood glucose between 80-120 Subjective Constitutional: Reports: no symptoms HEENT: Reports: no symptoms Respiratory: Reports: no symptoms Breasts: Reports: no symptoms Cardiovascular: Reports: no symptoms Gastrointestinal/Abdominal: Reports: no symptoms Genitourinary: Reports: no symptoms Neurologic: Reports: no symptoms Psychiatric: Reports: no symptoms Skin: Reports: no symptoms Endocrine: Reports: no symptoms Allergies: Coded Allergies: AMOXICILLIN (Verified Allergy, Unknown, 12/24/16) Objective Vital Signs Last 24 Hour Vital Signs Date Time Temp Pulse Resp B/P Pulse Ox O2 Delivery O2 Flow Rate FiO2 12/28/16 12:00 97.7 99 20 131/88 96 Room Air 12/28/16 08:00 97.9 92 20 127/72 93 Room Air 12/28/16 04:00 97.0 87 18 133/68 Room Air 12/28/16 00:00 98.1 91 20 157/72 94 Room Air 12/27/16 20:00 98.1 97 22 134/63 92 Room Air 12/27/16 16:06 98.4 65 21 109/68 97 Room Air Height (Feet): 5 Height (Inches): 5.00 Weight (Pounds): 175 General Appearance: WD/WN, no acute distress HEENT: normocephalic, atraumatic, anicteric, mucous membranes moist Respiratory/Chest: chest wall non-tender, lungs clear, normal breath sounds, no respiratory distress, no accessory muscle use Cardiovascular: normal peripheral pulses, normal rate, regular rhythm, no gallop/murmur, no JVD Abdomen: normal bowel sounds, soft, non tender, no organomegaly, non distended , no mass Extremities: no cyanosis, no clubbing Skin: no rash, no lesions Laboratory Tests Test 12/28/16 05:10 12/28/16 08:00 White Blood Count 9.2 K/UL (4.8-10.8) Red Blood Count 4.26 M/UL (4.70-6.10) L Hemoglobin 12.7 G/DL (14.2-18.0) L Hematocrit 38.4 % (42.0-52.0) L Mean Corpuscular Volume 90 FL (80-99) Mean Corpuscular Hemoglobin 29.8 PG (27.0-31.0) Mean Corpuscular Hemoglobin Concent 33.0 G/DL (32.0-36.0) Red Cell Distribution Width 12.3 % (11.6-14.8) Platelet Count 250 K/UL (150-450) Mean Platelet Volume 5.6 FL (6.5-10.1) L Neutrophils (%) (Auto) 64.0 % (45.0-75.0) Lymphocytes (%) (Auto) 23.4 % (20.0-45.0) Monocytes (%) (Auto) 10.4 % (1.0-10.0) H Eosinophils (%) (Auto) 1.5 % (0.0-3.0) Basophils (%) (Auto) 0.7 % (0.0-2.0) Sodium Level 141 mEQ/L (135-145) 139 mEQ/L (135-145) Potassium Level 2.9 mEQ/L (3.4-4.9) L 3.5 mEQ/L (3.4-4.9) Chloride Level 103 mEQ/L (98-107) 102 mEQ/L (98-107) Carbon Dioxide Level 23 mEQ/L (20-30) 25 mEQ/L (20-30) Anion Gap 15 (5-15) 12 (5-15) Blood Urea Nitrogen 6 mg/dL (7-23) L 7 mg/dL (7-23) Creatinine 0.5 mg/dL (0.7-1.2) L 0.6 mg/dL (0.7-1.2) L Estimat Glomerular Filtration Rate > 60 mL/min (>60) > 60 mL/min (>60) Glucose Level 645 mg/dL (74-106) #*H 264 mg/dL (74-106) #H Calcium Level 7.4 mg/dL (8.6-10.2) L 8.6 mg/dL (8.6-10.2) Current Medications Medications (Trade) Dose Ordered Sig/Elis Route PRN Reason Start Time Stop Time Status Last Admin Dose Admin Acetaminophen (Tylenol) 650 mg Q4H PRN ORAL fever 12/25/16 00:00 01/24/17 00:00 Al Hydroxide/Mg Hydroxide (Mylanta II) 30 ml Q6H PRN ORAL dyspepsia 12/25/16 00:00 01/24/17 00:00 Chlorhexidine Gluconate 1 applic 1 applic DAILY TOPIC 12/26/16 13:00 01/25/17 12:59 12/28/16 09:00 Dextrose (Dextrose 50%) STAT PRN IV Hypoglycemia 12/25/16 00:00 01/24/17 00:00 Dextrose (Dextrose 50%) STAT PRN IV Hypoglycemia 12/25/16 16:00 01/24/17 15:59 Dextrose/Sodium Chloride (D5ns) 1,000 ml @ 60 mls/hr [id number] IV 12/27/16 23:00 01/26/17 22:59 12/28/16 04:08 Diphenhydramine HCl (Benadryl) 25 mg Q6H PRN ORAL Itching/Pruritis 12/25/16 00:00 01/24/17 00:00 Famotidine (Pepcid I.v.) 20 mg Q12HR IVP 12/25/16 21:00 01/24/17 20:59 12/28/16 09:00 Insulin Aspart (NovoLOG) BEFORE MEALS AND HS SUBQ 12/25/16 17:30 01/24/17 17:29 12/28/16 12:32 Morphine Sulfate (Morphine Sulfate) 2 mg Q4H PRN IVP severe Pain (Pain Scale 7-10) 12/25/16 00:00 01/01/17 00:00 Nitroglycerin (Ntg) 0.4 mg Q5M X 3 DOSES PRN SL Prn Chest Pain 12/25/16 00:00 01/24/17 00:00 Ondansetron HCl (Zofran) 4 mg Q6H PRN IVP Nausea & Vomiting 12/25/16 00:00 01/24/17 00:00 Polyethylene Glycol (Miralax) 17 gm HSPRN PRN ORAL Constipation 12/25/16 00:00 01/24/17 00:00 Temazepam (Restoril) 15 mg HSPRN PRN ORAL Insomnia 12/25/16 00:00 01/01/17 00:00 Dante Rodriguez M.D. Dec 28, 2016 14:46
[2016-12-28 16:00] VITALS: BP 130/89
[2016-12-28 20:00] VITALS: BP 150/93
[2016-12-29] VITALS: BP 135/69
[2016-12-29 04:00] VITALS: BP 130/76
[2016-12-29] MEDS: NovoLOG Insulin Flexpen SUBQ SCH ×2 (06:14→11:34)
[2016-12-29 08:06] VITALS: BP 139/81
[2016-12-29 08:18] LABS: ANION GAP 12 (5-15); CALCIUM 8.9 mg/dL (8.6-10.2); CARBON DIOXIDE 27 mEQ/L (20-30); CHLORIDE 102 mEQ/L (98-107); CREATININE 0.7 mg/dL (0.7-1.2); GLOMERULAR FILTRATION RATE > 60 mL/min (>60); HEMOLYSIS 1; POTASSIUM 3.5 mEQ/L (3.4-4.9); SODIUM 141 mEQ/L (135-145)
[2016-12-29] MEDS: D5NS 1,000 ML IV SCH (08:20)
[2016-12-29 08:35] LABS: BASOPHILS % (AUTO) 0.6 % (0.0-2.0); EOSINOPHILS % (AUTO) 2.1 % (0.0-3.0); LYMPHOCYTES % (AUTO) 25.7 % (20.0-45.0); MEAN CORPUSCULAR HEMOGLOBIN 30.3 PG (27.0-31.0); MEAN CORPUSCULAR HGB CONC 33.8 G/DL (32.0-36.0); MEAN CORPUSCULAR VOLUME 90 FL (80-99); MEAN PLATELET VOLUME 5.9 FL (6.5-10.1); MONOCYTES % (AUTO) 10.6 % (1.0-10.0); NEUTROPHILS % (AUTO) 61.1 % (45.0-75.0); PLATELET COUNT 286 K/UL (150-450); RED BLOOD COUNT 4.65 M/UL (4.70-6.10); WHITE BLOOD COUNT 9.2 K/UL (4.8-10.8)
[2016-12-29] MEDS: Dyna-Hex 2% Top Sol 8oz TOPIC SCH (09:00)
[2016-12-29] MEDS ORDERED: D5NS 1000ml IV ONE (09:17)
--- NOTE | 2016-12-29 09:30 | Pulmonology Progress Note ---
Assessment/Plan Assessment/Plan ASSESSMENT hematemesis s/p EGD 12/27 gastritis distal esophagitis multiple shallow duodenal erosions psychosis hx of HTN DM PLAN OF CARE MS floor GI follows s/p EGD 12/27 with findings of 1. Distal esophagitis. 2. Gastritis. 3. Prominent fold at the angularis. 4. Multiple shallow duodenal erosions. per GI fup with biopsy results tolerates diet PPI IVF decrease rate if tolerated diet monitor HH, stable lipase WNL CXR negative Venous Duplex LE negative BS management with SS of insulin BP stable, no need for anti HTN meds HH remains stable need Gi clearance for discharge ? self induced emesis 2 to psychosis case discussed and evaluated by supervising physician Subjective Allergies: Coded Allergies: AMOXICILLIN (Verified Allergy, Unknown, 12/24/16) Subjective dc cancelled yesterday patient had episode of vomiting when ambulance arrived no further emesis HH stable Objective Last 24 Hour Vital Signs Date Time Temp Pulse Resp B/P Pulse Ox O2 Delivery O2 Flow Rate FiO2 12/29/16 08:06 97.6 99 19 139/81 96 Room Air 12/29/16 04:00 98.6 97 20 130/76 93 Room Air 12/29/16 00:00 99.1 99 20 135/69 93 Room Air 12/28/16 20:00 98.8 72 20 150/93 94 Room Air 12/28/16 16:00 98.1 95 20 130/89 95 Room Air 12/28/16 12:00 97.7 99 20 131/88 96 Room Air Intake and Output 12/28/16 12/29/16 19:00 07:00 Intake Total 960 ml Output Total 800 ml Balance 960 ml -800 ml Intake Oral 420 ml IV Total 540 ml Output Urine Total 800 ml # Voids 6 Objective General Appearance: WD/WN, no acute distress HEENT: normocephalic, atraumatic, anicteric, mucous membranes moist Respiratory/Chest: lungs clear, no respiratory distress Cardiovascular: normal rate, regular rhythm Abdomen: normal bowel sounds, soft, non tender Extremities: RUE stump clean Neurologic/Psychiatric: alert, responsive Musculoskeletal: normal muscle bulk Laboratory Tests 12/29/16 06:45: White Blood Count 9.2, Red Blood Count 4.65L, Hemoglobin 14.1L, Hematocrit 41.6L , Mean Corpuscular Volume 90, Mean Corpuscular Hemoglobin 30.3, Mean Corpuscular Hemoglobin Concent 33.8, Red Cell Distribution Width 12.0, Platelet Count 286, Mean Platelet Volume 5.9L, Neutrophils (%) (Auto) 61.1, Lymphocytes ( %) (Auto) 25.7, Monocytes (%) (Auto) 10.6H, Eosinophils (%) (Auto) 2.1, Basophils (%) (Auto) 0.6, Sodium Level 141, Potassium Level 3.5, Chloride Level 102, Carbon Dioxide Level 27, Anion Gap 12, Blood Urea Nitrogen 10, Creatinine 0.7, Estimat Glomerular Filtration Rate > 60, Glucose Level 230H, Calcium Level 8.9 Current Medications Medications (Trade) Dose Ordered Sig/Elis Route PRN Reason Start Time Stop Time Status Last Admin Dose Admin Acetaminophen (Tylenol) 650 mg Q4H PRN ORAL fever 12/25/16 00:00 01/24/17 00:00 Al Hydroxide/Mg Hydroxide (Mylanta II) 30 ml Q6H PRN ORAL dyspepsia 12/25/16 00:00 01/24/17 00:00 Chlorhexidine Gluconate 1 applic 1 applic DAILY TOPIC 12/26/16 13:00 01/25/17 12:59 12/28/16 09:00 Dextrose (Dextrose 50%) STAT PRN IV Hypoglycemia 12/25/16 16:00 01/24/17 15:59 Dextrose/Sodium Chloride (D5ns) 1,000 ml @ 60 mls/hr [id number] IV 12/27/16 23:00 01/26/17 22:59 12/28/16 04:08 Diphenhydramine HCl (Benadryl) 25 mg Q6H PRN ORAL Itching/Pruritis 12/25/16 00:00 01/24/17 00:00 Insulin Aspart (NovoLOG) BEFORE MEALS AND HS SUBQ 12/25/16 17:30 01/24/17 17:29 12/29/16 06:14 Morphine Sulfate (Morphine Sulfate) 2 mg Q4H PRN IVP severe Pain (Pain Scale 7-10) 12/25/16 00:00 01/01/17 00:00 Nitroglycerin (Ntg) 0.4 mg Q5M X 3 DOSES PRN SL Prn Chest Pain 12/25/16 00:00 01/24/17 00:00 Ondansetron HCl (Zofran ODT) 4 mg Q6H PRN ORAL Nausea & Vomiting 12/28/16 20:15 01/27/17 20:14 12/28/16 22:16 Polyethylene Glycol (Miralax) 17 gm HSPRN PRN ORAL Constipation 12/25/16 00:00 01/24/17 00:00 Ranitidine HCl (Zantac) 150 mg Q12HR ORAL 12/28/16 22:00 01/27/17 21:59 12/29/16 09:25 Temazepam (Restoril) 15 mg HSPRN PRN ORAL Insomnia 12/25/16 00:00 01/01/17 00:00 [facility]Our [facility] HospitalLaureen Kruger NP Dec 29, 2016 09:30
--- NOTE | 2016-12-29 09:43 | General Progress Note ---
Assessment/Plan Problem List: (1) Hematemesis ICD Codes: K92.0 - Hematemesis SNOMED: 3174711 Qualifiers: Qualified Codes: K92.0 - Hematemesis (2) Psychosis ICD Codes: F29 - Unspecified psychosis not due to a substance or known physiological condition SNOMED: 03840505 (3) HTN (hypertension) ICD Codes: I10 - Essential (primary) hypertension SNOMED: 71180631 Status: stable, progressing, tolerating diet Assessment/Plan ot pt diet adv diet gi f/u cbc bmp am dc plan if gi clears Subjective Constitutional: Reports: weakness Allergies: Coded Allergies: AMOXICILLIN (Verified Allergy, Unknown, 12/24/16) All Systems: reviewed and negative except above Subjective vomitting Objective Last 24 Hour Vital Signs Date Time Temp Pulse Resp B/P Pulse Ox O2 Delivery O2 Flow Rate FiO2 12/29/16 08:06 97.6 99 19 139/81 96 Room Air 12/29/16 04:00 98.6 97 20 130/76 93 Room Air 12/29/16 00:00 99.1 99 20 135/69 93 Room Air 12/28/16 20:00 98.8 72 20 150/93 94 Room Air 12/28/16 16:00 98.1 95 20 130/89 95 Room Air 12/28/16 12:00 97.7 99 20 131/88 96 Room Air Intake and Output 12/28/16 12/29/16 19:00 07:00 Intake Total 960 ml Output Total 800 ml Balance 960 ml -800 ml Intake Oral 420 ml IV Total 540 ml Output Urine Total 800 ml # Voids 6 Laboratory Tests 12/29/16 06:45: White Blood Count 9.2, Red Blood Count 4.65L, Hemoglobin 14.1L, Hematocrit 41.6L , Mean Corpuscular Volume 90, Mean Corpuscular Hemoglobin 30.3, Mean Corpuscular Hemoglobin Concent 33.8, Red Cell Distribution Width 12.0, Platelet Count 286, Mean Platelet Volume 5.9L, Neutrophils (%) (Auto) 61.1, Lymphocytes ( %) (Auto) 25.7, Monocytes (%) (Auto) 10.6H, Eosinophils (%) (Auto) 2.1, Basophils (%) (Auto) 0.6, Sodium Level 141, Potassium Level 3.5, Chloride Level 102, Carbon Dioxide Level 27, Anion Gap 12, Blood Urea Nitrogen 10, Creatinine 0.7, Estimat Glomerular Filtration Rate > 60, Glucose Level 230H, Calcium Level 8.9 Height (Feet): 5 Height (Inches): 5.00 Weight (Pounds): 175 General Appearance: lethargic Neck: normal alignment Cardiovascular: normal rate, regular rhythm Respiratory/Chest: chest wall non-tender, lungs clear, normal breath sounds Abdomen: normal bowel sounds, non tender, soft Extremities: normal inspection Edema: no edema noted Arm (L), no edema noted Arm (R), no edema noted Leg (L), no edema noted Leg (R), no edema noted Pedal (L), no edema noted Pedal (R), no edema noted Generalized Neurologic: responsive, motor weakness Skin: normal pigmentation, warm/dry RAF JARRETT Dec 29, 2016 09:43
[2016-12-29 11:49] VITALS: BP 128/79
--- NOTE | 2016-12-29 15:12 | General Progress Note ---
Assessment/Plan Assessment/Plan Assessment - UGIB - Gastritits, duodenitis, GERD Recommendations Ok For d/c PPI outpatient followup Subjective Allergies: Coded Allergies: AMOXICILLIN (Verified Allergy, Unknown, 12/24/16) Subjective Feels better no further N/V tolerating PO (+) Bm wants to be dc'd Objective Last 24 Hour Vital Signs Date Time Temp Pulse Resp B/P Pulse Ox O2 Delivery O2 Flow Rate FiO2 12/29/16 11:49 97.8 92 19 128/79 95 Room Air 12/29/16 08:06 97.6 99 19 139/81 96 Room Air 12/29/16 04:00 98.6 97 20 130/76 93 Room Air 12/29/16 00:00 99.1 99 20 135/69 93 Room Air 12/28/16 20:00 98.8 72 20 150/93 94 Room Air 12/28/16 16:00 98.1 95 20 130/89 95 Room Air Intake and Output 12/28/16 12/29/16 19:00 07:00 Intake Total 960 ml Output Total 800 ml Balance 960 ml -800 ml Intake Oral 420 ml IV Total 540 ml Output Urine Total 800 ml # Voids 6 Laboratory Tests 12/29/16 06:45: White Blood Count 9.2, Red Blood Count 4.65L, Hemoglobin 14.1L, Hematocrit 41.6L , Mean Corpuscular Volume 90, Mean Corpuscular Hemoglobin 30.3, Mean Corpuscular Hemoglobin Concent 33.8, Red Cell Distribution Width 12.0, Platelet Count 286, Mean Platelet Volume 5.9L, Neutrophils (%) (Auto) 61.1, Lymphocytes ( %) (Auto) 25.7, Monocytes (%) (Auto) 10.6H, Eosinophils (%) (Auto) 2.1, Basophils (%) (Auto) 0.6, Sodium Level 141, Potassium Level 3.5, Chloride Level 102, Carbon Dioxide Level 27, Anion Gap 12, Blood Urea Nitrogen 10, Creatinine 0.7, Estimat Glomerular Filtration Rate > 60, Glucose Level 230H, Calcium Level 8.9 Height (Feet): 5 Height (Inches): 5.00 Weight (Pounds): 175 Objective WDWN NCAT supple CTA RRR soft ND NT no edema RENETTA PALMER Dec 29, 2016 15:12
--- NOTE | 2017-01-01 08:02 | Discharge Summary ---
Discharge Summary Hospital Course Date of Admission Dec 25, 2016 at 00:28 Date of Discharge Dec 29, 2016 at 16:21 Admitting Diagnosis HEMATEMESIS HPI Boni Young is a 51 year old male who was admitted on Dec 25, 2016 at 00:28 for Hematemesis Hospital Course dc summary #[id number] Discharge Medications Continued Medications: Acetaminophen* (Acetaminophen 325MG Tablet*) 325 Mg Tablet 650 MG ORAL Q4H PRN for For Pain, TAB Amlodipine Besylate* (Amlodipine Besylate*) 10 Mg Tablet 10 MG ORAL DAILY PRN for For High Blood Pressure, TAB Aspirin* (Aspirin*) 81 Mg Tab.chew 81 MG ORAL DAILY, TAB Atorvastatin Calcium* (Atorvastatin Calcium*) 20 Mg Tablet 20 MG ORAL BEDTIME, TAB Docusate Sodium* (Docusate Sodium*) 100 Mg Capsule 100 MG ORAL DAILY for Constipation, CAP Gabapentin* (Neurontin*) 400 Mg Capsule 400 MG ORAL THREE TIMES A DAY, #15 CAP 0 Refills Glipizide* (Glipizide*) 5 Mg Tablet 5 MG ORAL BIDAC, TAB Insulin Glargine (Lantus) 100 Unit/1 Ml Insuln.pen 0 SUBQ BEDTIME, #1 EA 0 Refills Levothyroxine Sodium* (Levothyroxine Sodium*) 25 Mcg Tablet 25 MCG ORAL DAILY, TAB Take in the morning on an empty stomach, at least 30 minutes before food. Lorazepam* (Lorazepam*) 0.5 Mg Tablet 0.5 MG ORAL PRN, TAB Metformin Hcl* (Metformin Hcl*) 1,000 Mg Tablet 1000 MG ORAL BID, TAB Pantoprazole* (Pantoprazole*) 40 Mg Tablet.dr 40 MG ORAL DAILY, TAB Rivaroxaban (Xarelto*) 10 Mg Tablet 20 MG ORAL DAILY, #30 TAB 0 Refills Sertraline Hcl* (Zoloft*) 50 Mg Tablet 50 MG ORAL DAILY, TAB Temazepam* (Restoril*) 15 Mg Capsule 15 MG ORAL PRN PRN for Insomnia, CAP Discharge Condition Upon Discharge: stable Discharge Disposition Patient was discharged to SNF/Subacute Facility(03) Discharge Diagnoses: Henrique (Vanchtein)Laureen NP Jan 01, 2017 08:02
--- NOTE | 2017-01-01 09:30 | Discharge Summary 2 SIG ---
DATE OF ADMISSION: 12/25/2016 DATE OF DISCHARGE: 12/29/2016 REASON FOR ADMISSION: This is a 51-year-old male with history of hypertension, diabetes, psychosis, and COPD, presented from the group home facility where he resides with a complaint of epigastric pain with two episodes of hematemesis earlier this morning. No diarrhea. No melena. Workup in the emergency room was essentially negative. Hemoglobin was 14.2 and hematocrit 43. No leukocytosis. No fever. Stable lipase. AST was within normal limits. ALT slightly elevated to 42. The patient admitted for evaluation. ADMITTING DIAGNOSES: 1. Hematemesis, likely upper gastrointestinal bleeding. 2. Diabetes. 3. Hypertension. 4. Psychosis. HOSPITAL STAY: The patient is admitted. The patient initially kept NPO, started on the IV fluids. Hemoglobin and hematocrit closely monitored. No need for transfusion. Hemoglobin and hematocrit remained stable. GI consult requested. The patient subsequently undergone upper endoscopy on 12/27/2016, which revealed distal esophagitis, gastritis, and multiple shallow duodenal erosion. Gastroenterology recommended to resume diet. Follow up with the biopsy and started on PPI as well as treated symptomatically. DVT prophylaxis provided. Venous duplex of bilateral lower extremity was negative for evidence of acute DVT. Chest x-ray was negative. Supplemental oxygen and pulmonary toilet provided as needed. Pulse oximetry was stable on room air. Blood sugar was managed with sliding scale of insulin. Blood pressure was stable. The patient remained normotensive throughout the stay. No need for antihypertensive medication. The patient initially was about to be discharged on 12/28/2016, however, he reported episodes of vomiting at that time with hematemesis, hemoglobin 12.7 and hematocrit 38.4. The patient discharged with hold for one day. GI seen and evaluated the patient in next morning. Hemoglobin up to 14.1 and hematocrit 41.6. No further evidence of hematemesis. GI cleared for discharge and recommended outpatient follow up. DISCHARGE DIAGNOSES: 1. Hematemesis, upper gastrointestinal bleeding, status post esophagogastroduodenoscopy on 12/27/2016. 2. Gastritis. 3. Distal esophagitis. 4. Duodenitis. 5. Gastroesophageal reflux disease. 6. History of hypertension. 7. Diabetes mellitus. 8. Psychosis. DISCHARGE MEDICATIONS: See medication reconciliation list. DISCHARGE INSTRUCTIONS: The patient discharged to group home [facility]. FOLLOWUP: Follow up with medical doctor at the facility. Follow up with GI as an outpatient. Follow up with the results of biopsy. Jose Oneal D.O. I have been assigned to dictate discharge summary on this account and I was not involved in the patient's management. Laureen puricristina NBolivarPBolivar DR: LORAINE JOB#: [id number] CC:
== END 2016-12-29 16:21 | DRG 253 ==
LOC: EDBD 22:09 → EMR 23:00 → 4E 12-25 00:28 → EDBEDREQ 12-25 00:31
PROC: 0DB68ZX Excision of Stomach, Via Natural or Artificial Opening Endoscopic, Diagnostic (ICD-10-PCS; principal; 2016-12-27 11:40)
DX: K92.0 Hematemesis (principal); I11.0 Hypertensive heart disease with heart failure; I50.9 Heart failure, unspecified; K29.70 Gastritis, unspecified, without bleeding; K29.80 Duodenitis without bleeding; J44.9 Chronic obstructive pulmonary disease, unspecified; B95.2 Enterococcus as the cause of diseases classified elsewhere; Z16.21 Resistance to vancomycin; F29 Unspecified psychosis not due to a substance or known physiological condition; K21.0 Gastro-esophageal reflux disease with esophagitis; F17.200 Nicotine dependence, unspecified, uncomplicated
CPT/HCPCS: 36415; 36569; 71010; 76937; 80048; 80053; 81003; 82150; 82962; 83690; 85025; 85610; 85730; 87081; 93970; 94003; 94150; J1815; J2405